=== PATIENT | female | born 1950 | race Caucasian/White ===

== ENCOUNTER 2017-12-08 14:00 | Outpatient (RCR) | payer MEDICARE, MEDICAID, SELFPAY ==
--- NOTE | 2017-10-27 17:19 | HP.PTEVAL_ITS ---
Patient's Visit Information JEREMÍAS TAO is a 67 year old F referred to Physical Therapy by Garima JONES with a diagnosis of BACK PAIN. Date of Evaluation: 10/27/17 Physical Therapist: Jaswinder Hartmann PT, - Visit Plan Frequency: 2x /Week Duration: 4 Weeks Plan: POSTURAL EX'S ,DLS,MODALITIES - Subjective Subjective: This patient presents to physical therapy with back pain for severral years.Patient intially had chest pain thoracic,not cardiac EKG showed A -FIB,cardiac enzynes -. Location of thoracic lumbar to radicular right leg. Patient symptoms worse with activity standing,walking ,bending ,lifting. Pain affects ADL'S and houework tasks. Patient c/o parathesia right leg. Symptoms better with MEDS. Patient seen DR Kaur did epidurlal injections which helped . Bowel/bladder good. No trauma. Pain affects sleeping. VOCATION: reired. SOCAIL : - Pain Bilateral Back Pain Intensity (Out of 10): 5 Pain Intensity Range: 10 Right Lower Extremity Pain Intensity (Out of 10): 7 Pain Intensity Range: 10 - Objective POSTURE: mild foward posture. GAIT: normal ruby reciprocal pattern. MMT: quads/hams 4-/5,hip 4-/5 ,ankle 4/5. NEURO; c/o parathesia/tingling right leg , reflexes L3-4,L4-5,L5-S1 1/3. PALAPTION: tender paraspinals ,L-S erector spinals. SYMMRICAL : align. LUMBAR ROM: flexion min loss,mod extension mod loss pain,side glides min ,loss pain. FLEXABILITY: hams min loss - Special Tests L/S Slump test left side: Negative L/S Slump test right side: Negative L/S Left Straight Leg Raise: Negative L/S Right Straight Leg Raise: Negative Lumbar Standing: Flexion - Mechanical Response: No effect Lumbar Standing: Flexion - Symptoms During Testing: No effect Lumbar Standing: Flexion - Symptoms After Testing: No effect Lumbar Standing: Extension - Mechanical Response: No effect Lumbar Standing: Extension - Symptoms During Testing: Increases Lumbar Standing: Extension - Symptoms After Testing: No worse - Goals Goal 1:: Independant with HEP Goal Time Frame: 4-6 Weeks Goal 2:: Independant with posture/body mechanics Goal Time Frame: 4-6 Weeks Goal 3:: Patient to decrease thoarcaic and lumbar pain by 50 % or greater to omprove function. Goal Time Frame: 4-6 Weeks Goal 4:: Patient to increase lumbar ROM WFL for function of recovery Goal Time Frame: 4-6 Weeks Goal 5:: patient to be able to perfporm ADL'S and light housework tasks with min limitations Goal Time Frame: 4-6 Weeks - Rehabilitation Potential Physical Therapy Diagnosis: This patient presents to physical therapy with limbar pain with radicular symptoms right leg with decrease strength ,pain ,ROM loss with pain which impairs ADL'S and function Rehabilitation Potential: Good - Anticipated Interventions Patient/Client Instruction: Educate patient on: Condition, Plan of Care For the Purpose of:: To decrease pain, To increase ROM, To improve muscle performance and motor function, To improve ability to perform ADL's, To increase tolerance to activity/condition/position, To improve ability of physical actions for home/community/work/leisure, To improve health of tissue, To decrease soft tissue restriction, To increase flexibility/ROM, To improve ability to perform tasks related to life management Therapeutic Exercise to Include: Strength training, Postural training, Flexibilty training, Dynamic Lumbar Stabilization For the Purpose of:: To decrease pain, To increase ROM, To improve muscle performance and motor function, To improve ability to perform ADL's, To increase tolerance to activity/condition/position, To improve ability of physical actions for home/community/work/leisure, To improve health of tissue, To decrease soft tissue restriction, To increase flexibility/ROM, To improve ability to perform tasks related to life management IF ES: Yes Cryotherapy (ice pack, ice massage): Yes Thermo therapy (hot pack): Yes Ultrasound (thermal/non thermal): Yes For the Purpose of:: To decrease pain, To increase ROM, To improve muscle performance and motor function, To increase tolerance to activity/condition/ position, To decrease level of supervision to perform tasks, To improve health of tissue, To decrease soft tissue restriction, To increase flexibility/ROM, To improve ability to perform tasks related to life management Thank you for the opportunity to evaluate your patient. For Medicare and Medicare HMO plans, please review the plan of care and approve it. It will need to be FAXED BACK to us at [phone] for Medicare purposes. Please let me know if there are questions or concerns regarding this plan of care. Physician Signature: Date:
--- NOTE | 2017-12-08 14:46 | HP.PTDCSUM_ITS ---
HP - PT D/C Summary It has been my pleasure to treat JEREMÍAS TAO under orders from DR.ABASAL Sandrine for the diagnosis of BACK PAIN for a total of 10 visit(s). Discharge Date: 12/08/17 Please see the following information for a summary of their discharge status. - Subjective Subjective: Doing good - Pain Bilateral Back Pain Intensity (Out of 10): 0 Right Lower Extremity Pain Intensity (Out of 10): 3 - Overall Improvement % Improvement: 65 - Objective Objective/Function: POSTURE: mild foward posture. GAIT: normal ruby. MMT: quads/hams/hip 4/5. LUMBAR ROM: min loss flexion /ext. FLEXABILITY: min loss hams - Goals Goal 1:: Independant with HEP Goal Progress: Goal Met Goal 2:: Independant with posture/body mechanics Goal Progress: Goal Met Goal 3:: Patient to decrease thoarcaic and lumbar pain by 50 % or greater to omprove function. Goal Progress: Goal Met Goal 4:: Patient to increase lumbar ROM WFL for function of recovery Goal Progress: Goal Met Goal 5:: patient to be able to perfporm ADL'S and light housework tasks with min limitations Goal Progress: Goal Met - Plan Plan: d/c to HEP - D/C Information Discharge Comments: HEP If there are questions or concerns regarding this patient's physical therapy, please feel free to call me at [phone]. Thank you for the referral of this patient. Sincerely, Jaswinder Hartmann, PT,
== END 2017-12-08 19:00 | disposition home or self-care (01) ==
LOC: PT 14:00
PROVIDERS: Family Provider Internal Medicine; PCP Internal Medicine; Visit Provider Anesthesiology Pain Medicine
DX: M54.9 Dorsalgia, unspecified (principal)
CPT/HCPCS: 97014; 97110; 97162; G0283

== ENCOUNTER → 2017-12-12 16:01 | Outpatient (CLI) | payer MEDICARE, MEDICAID, SELFPAY ==
--- NOTE | 2017-12-12 16:10 | RAD_ITS ---
STUDY: X-RAY - LUMBAR SPINE REASON FOR EXAM: Female, 67 years old. Right leg pain. TECHNIQUE: 3 view(s) of the lumbar spine were obtained. COMPARISON: None FINDINGS: Normal lumbar lordosis. There is a levoscoliosis of the lumbar spine. There is multilevel endplate spondylosis of the lumbar vertebrae. There is narrowing of L2-3 disc space. There is minimal anterolisthesis of L4 over L5. There is no demonstrated acute compression fracture deformity. The soft tissue structures are unremarkable. RAD/Lumbar Spine 2 or 3 Views IMPRESSION: Degenerative changes of the lumbar spine as described above. Mild levoscoliosis. Electronically Signed: Willie Morataya MD at 1:39 EST Tel , Service support ,
== END ==
PROVIDERS: Family Provider Internal Medicine; PCP Internal Medicine; Visit Provider Anesthesiology Pain Medicine
DX: M54.5 Low back pain (principal)
CPT/HCPCS: 72100

== ENCOUNTER → 2017-12-21 14:22 | Outpatient (CLI) | payer MEDICARE, MEDICAID, SELFPAY ==
[2017-12-21 15:51] LABS: Anion Gap 9 (5-15); BUN 16 mg/dL (7-18); BUN/Creat Ratio 18.8 RATIO (10-20); Calcium,Total 8.4 mg/dL (8.5-10.1); Chloride 101 mmol/L (98-107); Creatinine, Serum 0.85 mg/dL (0.55-1.02); EST Glomerular Filtration Rate 71 mL/min (>60); Est Glom Filt Rate - Afr Amer 86 mL/min (>60); Glucose 100 mg/dL (74-106); Potassium 3.9 mmol/L (3.5-5.1); Sodium Level 139 mmol/L (136-145)
== END ==
PROVIDERS: Family Provider Internal Medicine; PCP Internal Medicine; Visit Provider Internal Medicine
DX: I10 Essential (primary) hypertension (principal)
CPT/HCPCS: 36415; 80048

== ENCOUNTER → 2018-01-10 15:40 | Outpatient (CLI) | payer MEDICARE, MEDICAID, SELFPAY ==
[2018-01-10 17:50] LABS: Anion Gap 8 (5-15); BUN 16 mg/dL (7-18); BUN/Creat Ratio 19.6 RATIO (10-20); Calcium,Total 8.8 mg/dL (8.5-10.1); Chloride 98 mmol/L (98-107); Creatinine, Serum 0.82 mg/dL (0.55-1.02); EST Glomerular Filtration Rate 74 mL/min (>60); Est Glom Filt Rate - Afr Amer 90 mL/min (>60); Glucose 82 mg/dL (74-106); Sodium Level 136 mmol/L (136-145)
== END ==
PROVIDERS: Family Provider Internal Medicine; PCP Internal Medicine; Visit Provider Internal Medicine
DX: I10 Essential (primary) hypertension (principal)
CPT/HCPCS: 36415; 80048

== ENCOUNTER → 2018-01-14 07:41 | Outpatient (CLI) | payer MEDICARE, MEDICAID, SELFPAY ==
--- NOTE | 2018-01-14 07:45 | MRI_ITS ---
STUDY: MRI LUMBAR SPINE WITHOUT CONTRAST REASON FOR EXAM: Female, 67 years old. Back and right leg pain and groin pain. TECHNIQUE: Standardized fat and water weighted pulse sequences were obtained in the sagittal and axial planes. COMPARISON: None FINDINGS: T11-T12: (Sagittal only). Normal endplates. Normal disc height and morphology. Normal central canal and bilateral intervertebral neural foramina. Ovoid benign focal fatty infiltration in the left upper T12 vertebral body. T12-L1: (Sagittal only). Normal endplates. Minimal disc space height narrowing with small posterior bulging disc. Normal central canal and bilateral intervertebral neural foramina. Normal lumbar lordosis. There is no substantial scoliosis. Normal conus medullaris that terminates at the T12-L1 disc level. L1-2: Normal endplates. Normal disc height, hydration and morphology. Normal central canal and bilateral lateral recesses. Mild left degenerative facet arthropathy. Normal right facet joint. Normal bilateral intervertebral neural foramina. L2-3: Prominent anterior marginal spurs. Moderately pronounced disc space height narrowing with mild Modic type I degenerative vertebral marrow edema underneath the posterior aspect of the vertebral endplates. There is also Modic type II degenerative vertebral marrow fatty changes underneath the anterior aspect of the vertebral endplates. Posterior marginal spurs. No extruded disc fragment. Normal central canal and bilateral lateral recesses. Mild bilateral degenerative facet arthropathy. Normal bilateral intervertebral neural foramina. L3-4: Normal endplates. Mild disc space height narrowing. Posterior annular bulging disc. Mild flattening central canal stenosis secondary to developmental short pedicles and dorsal epidural lipomatosis. The AP canal diameter is 7.2 mm. Moderate asymmetric degenerative facet arthropathy. Normal bilateral intervertebral neural foramina. L4-5: Normal endplates. Mild disc space height narrowing with minimal degenerative anterolisthesis of L4 on L5. Mild flattening central canal stenosis secondary to developmentally short pedicles, dorsal epidural lipomatosis and bilateral posterior ligamentum flavum hypertrophy. Normal bilateral lateral recesses. The AP canal diameter is 7.6 mm. Moderate bilateral degenerative facet arthropathy. Normal bilateral intervertebral neural foramina. Round benign focal fatty infiltration in the left side of the lower L4 vertebral body. L5-S1: Normal endplates. Mild disc space height narrowing. Normal disc morphology. Normal central canal and bilateral lateral recesses. Mild left degenerative facet arthropathy. Normal right facet joint. Normal bilateral intervertebral neural foramina. Normal visualized sacral ala. Normal visualized paraspinous soft tissue structures. MRI/Spine Lumbar (Routine) IMPRESSION: 1. No MRI evidence of lumbar extruded disc fragment. 2. Mild flattening central canal stenosis at L4-L5 disc space level secondary to developmentally short pedicles, dorsal epidural lipomatosis, posterior ligamenta flava hypertrophy, minimal degenerative anterolisthesis of L4 on L5 and moderate bilateral degenerative facet arthropathy. 3. Mild flattening central canal stenosis at L3-L4 disc level secondary to developmental short pedicles and dorsal epidural lipomatosis. 4. Moderately pronounced L2-L3 disc space height narrowing with mixed Modic type I and type II degenerative vertebral marrow changes underneath the vertebral endplates and mild bilateral degenerative facet arthropathy. Electronically Signed: Emmanuel Belle MD at 10:53 EDT , Service support ,
== END ==
PROVIDERS: Family Provider Internal Medicine; PCP Internal Medicine; Visit Provider Anesthesiology Pain Medicine
DX: M54.9 Dorsalgia, unspecified (principal); M79.606 Pain in leg, unspecified
CPT/HCPCS: 72148

== ENCOUNTER 2018-01-15 02:18 | Emergency (ER) | payer MEDICARE, MEDICAID, SELFPAY ==
[2018-01-15] VITALS (8 sets, daily range): BP systolic 137–174; BP diastolic 79–95; PULSE 73–88; RESP 16–19; TEMP 36.9; O2SAT 96–100; BMI 25.7
--- NOTE | 2018-01-15 02:28 | EKG12_ITS ---
Test Reason : REPEAT Blood Pressure : / mmHG Vent. Rate : 075 BPM Atrial Rate : 075 BPM P-R Int : 180 ms QRS Dur : 090 ms QT Int : 412 ms P-R-T Axes : 068 040 047 degrees QTc Int : 460 ms Normal sinus rhythm Normal ECG Confirmed by KODAK DAVIS MD ([id number]), fashion editor [facility] LR ([id number]) on 01/16/2018 1:41:35 PM Referred By: CHENCHO Confirmed By:KODAK DAVIS MD
--- NOTE | 2018-01-15 02:28 | RAD_ITS ---
STUDY: X-RAY CHEST REASON FOR EXAM: Female, 67 years old. Chest pain TECHNIQUE: PA and lateral COMPARISON: 09/09/2017 FINDINGS: Lungs are expanded. There are mild fibrotic changes. There are NO infiltrates, effusions or pneumothoraces. Normal size heart. Normal mediastinum and elaine. Normal visualized pulmonary arteries. Normal visualized aortic arch and descending thoracic aorta. Normal visualized thoracic spine. Normal visualized ribs, clavicles, and shoulders. There is no demonstrated abnormality of the visualized soft tissue structures of the upper abdomen. RAD/Chest PA and Lateral IMPRESSION: There is NO acute cardiopulmonary abnormality. Electronically Signed: Denilson Velasquez MD at 3:36 EDT , Service support ,
--- NOTE | 2018-01-15 02:36 | ED.VISSUMM ---
- ER Visit Summary Date of Service: 01/15/18 Chief Complaint: [] Chest pain History of Present Illness: The patient is a 67 F [] Complaining of chest pain beginning half an hour prior to arrival. She reports she was having difficulty sleeping and started doing laundry when the pain started. Denies drug or alcohol abuse. She reports she is a smoker. Past medical history of mild COPD, hypertension, alcoholism, schizophrenia, depression, GI bleed. Past surgical history of appendectomy and left chest wall lung surgery. Physical Examination: [] Afebrile, vital signs stable. Patient is a 67-year-old female no acute distress. Cardiovascular exam is regular rate and rhythm. Lungs are clear to auscultation. Abdomen is soft and nontender. No lower extremity edema. Test Results: [] EKG #1 normal sinus rhythm, rate of 80 without ectopy or ischemic changes. Normal intervals. EKG #2: Normal sinus rhythm rate of 75, no ectopy or ischemic changes. Normal intervals. Chest x-ray 2 views: Negative. CBC, BMP normal. INR 1.0. Troponin #1: Less than 0.02. Troponin #2: Less than 0.02. Emergency Department Course and Treatment: [] Patient presented with chest pain. She underwent routine testing. Her MARNI risk score was 1 out of 7. She is unable to take aspirin secondary to a reported allergy. She underwent delta troponin testing with repeat EKG which was negative. She was pain-free after nitroglycerin. She reports she had a stress test less than a year ago which was negative. She represents a low risk candidate at this time and I feel she is a good candidate for close follow-up as an outpatient. She is amenable to discharge. She understands the instructions to return really should symptoms worsen or recur. All questions answered in layman's terms. Treatment Plan: [] Follow-up with PCP. Disposition: [] Discharge, stable. Impression: [] Chest pain This note was generated with Sp[employer] dictation software. It may contain incorrect words, spelling, and punctuation that were not noted in review of the chart prior to signing ED Disposition - Plan for ED Patient: Chief Complaint: Chest Pain Referrals: Virginia Steele MD [Primary Care Provider] -
[2018-01-15 02:50] LABS: Absolute Lymphocyte Count 1.85 X10^3/ul (0.83-4.51); Absolute Neutrophil Count 3.6 X10^3/uL (2.0-7.7); Basophil# 0.05 X10^3/uL; Basophil% 0.8 % (0-1); Eosinophil# 0.29 X10^3/uL; Eosinophils% 4.5 % (0-5); Hematocrit 40.4 % (37-47); Hemoglobin 13.9 g/dl (12.0-15.0); Lymphocyte # 1.85 X10^3/ul (4.0); Lymphocyte % 28.9 % (19-41); Mean Corp Hgb Conc 34.4 g/gl (32-36); Mean Corpuscular Hgb 33.4 pg (27.0-32.0); Mean Corpuscular Volume 97.1 fL (81-99); Mean Platelet Vol. 11.1 fl (6.2-12.0); Monocyte# 0.61 X10^3/uL; Monocyte% 9.5 % (0-10); Neutrophil % 56.3 % (47-70); POSITIVE COUNT NO; POSITIVE DIFFERENTIAL NO; POSITIVE MORPHOLOGY NO; Platelet Count 204 K/mm3 (150-450); RBC Distribution Width CV 11.9 % (11.6-14.6); RBC Distribution Width SD 41.4 fl (35.1-43.9); Red Blood Count 4.16 M/mm3 (4.2-5.4); White Blood Count 6.4 K/mm3 (4.4-11.0)
[2018-01-15 02:54] LABS: Prothrombin Time (Protime)PT. 13.3 SECONDS (11.7-14.9)
[2018-01-15 03:04] LABS: Anion Gap 7 (5-15); BUN 13 mg/dL (7-18); BUN/Creat Ratio 18.8 RATIO (10-20); Calcium,Total 8.6 mg/dL (8.5-10.1); Chloride 101 mmol/L (98-107); Creatinine, Serum 0.69 mg/dL (0.55-1.02); EST Glomerular Filtration Rate 90 mL/min (>60); Est Glom Filt Rate - Afr Amer 109 mL/min (>60); Estimated Creatinine Clearance 55.82 ml/min; Glucose 88 mg/dL (74-106); Potassium 3.6 mmol/L (3.5-5.1); Sodium Level 135 mmol/L (136-145)
--- NOTE | 2018-01-15 04:19 | EKG12_ITS ---
Test Reason : CP Blood Pressure : / mmHG Vent. Rate : 080 BPM Atrial Rate : 080 BPM P-R Int : 172 ms QRS Dur : 082 ms QT Int : 382 ms P-R-T Axes : 065 048 058 degrees QTc Int : 440 ms Normal sinus rhythm Normal ECG Confirmed by SUSAN CONDE, KODAK ([id number]), fan mail editor [facility] ([id number]) on 01/16/2018 1:41:52 PM Referred By: CHENCHO Confirmed By:KODAK DAVIS MD
--- NOTE | 2018-01-15 05:42 | ED.DEP ---
ED Disposition - Plan for ED Patient: Disposition: Home or Assisted Living Chief Complaint: Chest Pain Instructions: ED Chest Pain Atypical Unkn Cause Referrals: Virginia Steele MD [Primary Care Provider] -
--- NOTE | 2018-01-15 05:49 | ED.RN ---
IV DC'D, CATHETER INTACT, SMALL GAUZE DRESSING PLACED. DISCHARGE INSTRUCTIONS GIVEN TO AND REVIEWED WITH PATIENT, PATIENT DENIES QUESTIONS OR CONCERNS AND VOICES UNDERSTANDING OF DISCHARGE INSTRUCTIONS. PT AMBULATES OUT OF ROOM WITHOUT DIFFICULTY.
== END 2018-01-15 05:50 | disposition home or self-care (01) ==
PROVIDERS: Emergency Provider Emergency Medicine; Family Provider Internal Medicine; PCP Internal Medicine
DX: R07.9 Chest pain, unspecified (principal); I10 Essential (primary) hypertension; F10.20 Alcohol dependence, uncomplicated; F20.9 Schizophrenia, unspecified; F32.9 Major depressive disorder, single episode, unspecified; F17.200 Nicotine dependence, unspecified, uncomplicated; Z79.899 Other long term (current) drug therapy
CPT/HCPCS: 71046; 80048; 84484; 85025; 85610; 93005; 99284; A4216

== ENCOUNTER → 2018-01-27 14:43 | Outpatient (CLI) | payer MEDICARE, MEDICAID, SELFPAY | PROVIDERS: Family Provider Internal Medicine; PCP Internal Medicine; Visit Provider Internal Medicine | DX: E87.6 Hypokalemia (principal) | CPT/HCPCS: 36415; 84132 ==

== ENCOUNTER 2018-01-28 11:30 | Emergency (ER) | payer MEDICARE, MEDICAID, SELFPAY ==
[2018-01-28 11:32] VITALS: BP 172/98; PULSE 86; RESP 16; TEMP 37; O2SAT 100; BMI 25.4
--- NOTE | 2018-01-28 11:40 | EKG12_ITS ---
Test Reason : DYSRHYTHMIA Blood Pressure : / mmHG Vent. Rate : 083 BPM Atrial Rate : 083 BPM P-R Int : 180 ms QRS Dur : 082 ms QT Int : 380 ms P-R-T Axes : 073 061 062 degrees QTc Int : 446 ms Sinus rhythm with frequent Premature ventricular complexes Right atrial enlargement Borderline ECG Confirmed by SUSAN CONDE, KODAK ([id number]), newspaper photo editor [facility] ([id number]) on 01/31/2018 2:27:01 PM Referred By: Virginia Steele Confirmed By:KODAK DAVIS MD
--- NOTE | 2018-01-28 11:45 | RAD_ITS ---
STUDY: X-RAY CHEST REASON FOR EXAM: Female, 67 years old. Chest pain and jaundice TECHNIQUE: Single AP portable view of the chest. COMPARISON: January 15, 2018 FINDINGS: There is persistent right greater than left centrally located bronchiectasis. There is no demonstrated pleural abnormality. Normal size heart. Normal mediastinum and elaine. Normal visualized pulmonary arteries. Normal visualized aortic arch and descending thoracic aorta. There are diffuse degenerative changes of the visualized thoracic spine. Normal visualized ribs, clavicles, and shoulders. There is no demonstrated abnormality of the visualized soft tissue structures of the upper abdomen. RAD/Chest 1 View (Portable) IMPRESSION: Perihilar bronchiectasis and no definitive focal infiltrate. No demonstrated acute cardiopulmonary process. Electronically Signed: Karla Smith MD at 12:05 EDT Tel , Service support ,
[2018-01-28 12:02] LABS: Absolute Lymphocyte Count 1.38 X10^3/ul (0.83-4.51); Absolute Neutrophil Count 3.4 X10^3/uL (2.0-7.7); Basophil# 0.03 X10^3/uL; Basophil% 0.6 % (0-1); Eosinophil# 0.25 X10^3/uL; Eosinophils% 4.6 % (0-5); Hematocrit 38.6 % (37-47); Hemoglobin 13.1 g/dl (12.0-15.0); Lymphocyte # 1.38 X10^3/ul (4.0); Lymphocyte % 25.5 % (19-41); Mean Corp Hgb Conc 33.9 g/gl (32-36); Mean Corpuscular Hgb 32.7 pg (27.0-32.0); Mean Corpuscular Volume 96.3 fL (81-99); Mean Platelet Vol. 10.5 fl (6.2-12.0); Monocyte# 0.38 X10^3/uL; Neutrophil # 3.36 X10^3/uL (2.7-7.7); Neutrophil % 62.1 % (47-70); POSITIVE COUNT NO; POSITIVE DIFFERENTIAL NO; POSITIVE MORPHOLOGY NO; Platelet Count 213 K/mm3 (150-450); RBC Distribution Width CV 12.1 % (11.6-14.6); RBC Distribution Width SD 42.8 fl (35.1-43.9); Red Blood Count 4.01 M/mm3 (4.2-5.4); White Blood Count 5.4 K/mm3 (4.4-11.0)
--- NOTE | 2018-01-28 12:06 | ED.VISSUMM ---
- ER Visit Summary Date of Service: 01/28/18 Chief Complaint: [] Concern for yellow skin History of Present Illness: The patient is a 67 F [] hypertension low potassium by history she has been feeling fine recently had routine blood tests that were negative she is currently living in a [facility] and she indicates residents there were concerned she had yellow skin so she came to the emergency department. She has had no fever no cough no abdominal pain head neck chest or any issues of any kind. She has no history of hepatitis alcohol use or abuse or jaundice her bowel bladder habits have been normal she is eating and drinking without difficulty she is on no new medications she has no pain Physical Examination: [] Her vital signs are within normal range her skin is normal there is no signs of jaundice her eyes are normal without jaundice oral cavity is unremarkable she just had a full mouth extraction 3 weeks ago was uncomplicated the neck is supple the lungs are clear the heart tones are unremarkable abdomen soft nontender upper lower extremities unremarkable again the skin is normal the abdomen slightly soft and nontender Test Results: [] Emergency Department Course and Treatment: [] labs and fluids, the patient studies are all unremarkable see those reports I explained the test results to her of explained affect is no clinical or laboratory signs of jaundice she should follow with her family doctors and return for change in symptoms she should avoid alcohol etc. Treatment Plan: [] Disposition: [] Home stable Impression: [] Concern for jaundice This note was generated with Mulu dictation software. It may contain incorrect words, spelling, and punctuation that were not noted in review of the chart prior to signing ED Disposition - Plan for ED Patient: Chief Complaint: General Illness Referrals: Virginia Steele MD [Primary Care Provider] -
[2018-01-28 12:19] LABS: Anion Gap 5 (5-15); BUN 8 mg/dL (7-18); BUN/Creat Ratio 10.6 RATIO (10-20); Calcium,Total 8.5 mg/dL (8.5-10.1); Chloride 99 mmol/L (98-107); Creatinine, Serum 0.75 mg/dL (0.55-1.02); EST Glomerular Filtration Rate 82 mL/min (>60); Est Glom Filt Rate - Afr Amer 99 mL/min (>60); Estimated Creatinine Clearance 55.82 ml/min; Glucose 96 mg/dL (74-106); Potassium 3.2 mmol/L (3.5-5.1); Sodium Level 132 mmol/L (136-145)
[2018-01-28 12:28] LABS: BNP,B-Type NATRIURETIC PEPTIDE 20.3 pg/mL (0-100)
[2018-01-28 12:35] LABS: Bacteria 0 SEEN /hpf (None Seen); Color, Urine Straw (Yellow); Glucose, Dipstick Normal (Normal); Ketone-Dipstick Negative (Negative); Leukocyte Esterase-Dipstick Negative /ul (Negative); Mucous, Urine 0 SEEN /hpf (<or=2+); Nitrite-Dipstick Negative (Negative); Occult Blood-Urine Negative /ul (Negative); Protein-Dipstick Negative (Negative); Red Blood Cells-Urine 0 SEEN /hpf (0-5); Specific Gravity, Urine 1.005 (1.002-1.030); Urine Bilirubin Dipstick Negative (Negative); Urine Clarity Clear (Clear); Urine Urobilinogen Normal (Normal); White Blood Cells 0 SEEN /hpf (0-5)
[2018-01-28 12:40] LABS: Squamous Epithelial Cells - UA 0-5 SEEN /hpf (5-10)
[2018-01-28 13:06] LABS: AST(SGOT) 13 U/L (15-37); Alanine Aminotransfer ALT/SGPT 14 U/L (13-56); Albumin, Serum 3.9 g/dL (3.2-5.0); Alkaline Phosphatase 78 U/L (45-117); Bilirubin, Direct 0.13 mg/dL (0.00-0.30); Globulin 3.4 g/dL (2.2-4.2); Protein, Total 7.3 g/dL (6.4-8.2)
--- NOTE | 2018-01-28 13:22 | ED.DEP ---
ED Disposition - Plan for ED Patient: Chief Complaint: General Illness Referrals: Virginia Steele MD [Primary Care Provider] - Additional Instructions: Avoid alcohol follow-up with your doctor in the next few days there is no signs of jaundice on your blood tests
[2018-01-28 13:29] VITALS: BP 157/92; PULSE 84; RESP 17; O2SAT 98
--- NOTE | 2018-01-28 13:29 | ED.RN ---
REVIEWED D/C INSTRUCTIONS, FOLLOW UP CARE, AND S/S THAT WOULD WARRANT A RETURN TO THE ED WITH PT. PT VERBALIZED AN UNDERSTANDING AND DENIES FURTHER QUESTIONS FOR THIS RN. PT SKIN P/W/D, RESP EVEN AND UNLABORED, PT A&O X 3, NO DISTRESS NOTED. PT AMBULATED OUT OF ED, GAIT STEADY.
== END 2018-01-28 13:30 | disposition home or self-care (01) ==
LOC: ED 12:31
PROVIDERS: Emergency Provider Emergency Medicine; Family Provider Internal Medicine; PCP Internal Medicine
DX: Z00.00 Encounter for general adult medical examination without abnormal findings (principal); Z13.89 Encounter for screening for other disorder; I10 Essential (primary) hypertension; Z79.899 Other long term (current) drug therapy
CPT/HCPCS: 71045; 80048; 80076; 81001; 83880; 84484; 85025; 93005; 99284; A4216

== ENCOUNTER → 2018-05-17 12:08 | Outpatient (CLI) | payer MEDICARE, MEDICAID, SELFPAY ==
--- NOTE | 2018-05-17 12:12 | EKG12_ITS ---
Test Reason : PRE-OP Blood Pressure : / mmHG Vent. Rate : 084 BPM Atrial Rate : 084 BPM P-R Int : 176 ms QRS Dur : 082 ms QT Int : 380 ms P-R-T Axes : 070 039 050 degrees QTc Int : 449 ms Sinus rhythm with occasional Premature ventricular complexes Biatrial enlargement Abnormal ECG Confirmed by KATIE CONDE, CARROL ([id number]), commissioning editor [facility] ([id number]) on 05/18/2018 9:35:07 AM Referred By: Sahil Rhodes Confirmed By:CARROL WILSON MD
== END ==
PROVIDERS: Family Provider Internal Medicine; PCP Internal Medicine; Visit Provider Nurse Practitioner Family
DX: I49.9 Cardiac arrhythmia, unspecified (principal)
CPT/HCPCS: 93005

== ENCOUNTER → 2018-06-08 11:07 | Outpatient (CLI) | payer MEDICARE, MEDICAID, SELFPAY ==
[2018-06-08 11:58] LABS: Anion Gap 10 (5-15); BUN 9 mg/dL (7-18); Calcium,Total 9.4 mg/dL (8.5-10.1); Chloride 102 mmol/L (98-107); Cholesterol 128 mg/dL (200); EST Glomerular Filtration Rate 59 mL/min (>60); Est Glom Filt Rate - Afr Amer 71 mL/min (>60); Glucose 97 mg/dL (74-106); High Density Lipoprotein 64 mg/dL; Potassium 3.7 mmol/L (3.5-5.1); Sodium Level 135 mmol/L (136-145); Triglycerides 59 mg/dL; Very Low Density Lipoprotein 12 mg/dL (5-40)
== END ==
PROVIDERS: Family Provider Internal Medicine; PCP Internal Medicine; Visit Provider Internal Medicine
DX: I10 Essential (primary) hypertension (principal)
CPT/HCPCS: 36415; 80048; 80061

== ENCOUNTER 2018-07-12 06:53 | Day surgery (SDC) | payer MEDICARE, MEDICAID, SELFPAY ==
[2018-07-12 07:11] VITALS: BP 146/76; PULSE 84; RESP 14; TEMP 36.6; O2SAT 100; BMI 22.6
--- NOTE | 2018-07-12 07:50 | H&P.OPEN ---
Past Medical/Surgical History - Planned Operation Planned Operative Procedure/s: colonoscopy Date of Operative Procedure: 07/12/18 Permit Signed: No S.O.S: No Is This Patient Having a Total Joint: No - Previous Hospitalizations/Surgeries HX Hospitalizations: Yes HX of Surgeries: LEFT LUNG SURGERY FOR PNEUMOTHORAX 1967. APPENDECTOMY 1985. LT LEG SURGERY FOR COMPARTMENT SYNDR about 2011. HOSPITALIZED FOR GI BLEED IN THE PAST. Colonoscopy 2017 Any Problems With Anesthesia: Yes - MANY YRS AGO WOKE UP COMBATIVE You/Your Family Experience Fever (Hyperthermia) With Anes: No Cholinesterase deficiency: No - Cardiovascular Hx Chest Pain within Last 2 months: Yes Hx of Irregular Heartbeat and/or Afib: Yes Hx Heart Attack: Yes - about 2006 Hx Congestive Heart Failure: No Hx Rheumatic Fever: No Hx Hypertension: Yes - CONTROLLED WITH MED Hx Internal Defibrillator: No Hx Pacemaker: No Hx Cardiac Catheterization: Yes - [facility] about 2006 What facility was last heart cath performed: [facility] Date of last Heart Cath: about 2006 Hx Cardiac Surgery/Stents/Etc.: No - . Hx Stress Test: Yes - 2014 AND ECHO HX Edema: Yes Hx Pain in Legs when Walking/Leg Cramps: No - Respiratory Chronic Cough: Yes HX of Shortness of Breath: No Hoarseness: No Hx Chronic Obstructive Pulmonary Disease (COPD): No - pt denies Hx Asthma: No Hx Emphysema: No - pt denies Hx Sleep Apnea: No CPAP: No BIPAP: No Hx Respiratory Tract Infection/Cold (presently): No Do You Snore Loudly (louder than talking or can be heard): Yes Do You Often Feel Tired/ Fatigued/ Sleepy Dring Daytime?: No Has Anyone Observed You Stop Breathing During Sleep?: No Result (for STOP score): Positive Hx Smoking: Yes - <1ppd CIGARETTES DAILY Smoking Status: Current every day smoker - Gastrointestinal Hx Gastroesophageal Reflux: No Hx Gastrointestinal Disorders: No Hx Gastrointestinal Bleed: Yes Hx Ulcer: Yes Hx Hiatal Hernia: No Difficulty Chewing/Swallowing: No Recent Onset of Swallowing Problems: No Special diet followed at home: Yes - low salt Hx Unplanned Weight Loss of 20#: No HX Unplanned Weight Gain of 20#: No - Neurological Hx Seizures: No HX Syncope/Blackout Spells/Unconsciousness: No Hx CVA/Stroke: No Hx Transient Ischemic Attacks (TIA): No Hx Multiple Sclerosis: No Hx Parkinson's Disease: No Hx Head/Neck Injury: No Hx Headaches: Yes - MIGRAINES YOUNG ADULT Hx Back Injury/Pain: Yes Recent Onset of Speech Difficulty: No Restless Legs: No Does patient have nerve stimulator: No Patient instructed to have device shut off: No Rep notified?: No - Blood Disorder Hx Leukemia: No Bleeding Tendencies: No Hx Deep Vein Thrombosis: No Hx High Cholesterol: No Blood Transmitted Disease: No Hx Hepatitis: No Hx Cirrhosis: No Hx Anemia: Yes Hx Blood Disorders: No - Reproduction Is Patient Lactating: No Hx Hysterectomy: No Hx Tubal Ligation: No Are You Post Menopause: Yes - Genitourinary Hx Renal Disease: No Hx Dialysis: No - Musculoskeletal Hx Arthritis: No Hx Rheumatoid Arthritis: No Hx Gout: No Recent Onset of an Orthopedic Problem: No - Endocrine Hx Diabetes: No Thyroid Disease: No Hx Steroid Therapy: Yes - back shot not sure what was in it - Psycho/Social Hx Substance Use: No Hx Alcohol Use: No Hx Anxiety: Yes - yrs ago, resolved now Hx Depression: Yes - yrs ago, resolved now Mental Illness: No Hx Dementia: No - Miscellaneous Hx Cancer: No Recent Exposure to Contagious Disease: No Active MRSA: No Hx of C-Diff: No Any Loose Teeth: No Allergies buspirone HCl [From BuSpar] Allergy (Verified 07/12/18 07:11) Unknown mold Allergy (Verified 07/12/18 07:11) cough aspirin Adverse Reaction (Verified 07/12/18 07:11) GI BLEED history GI bleed bupropion [From Wellbutrin] Adverse Reaction (Verified 07/12/18 07:11) suicidal tendencies ibuprofen Adverse Reaction (Verified 07/12/18 07:11) GI BLEED Hx of GI bleed iv dye containing iodine Allergy (Uncoded 07/12/18 07:11) Unknown Paternal Family History: Family History (Last Reviewed 05/17/18 @ 10:47 by Shawna Christensen) Unknown Past medical history not known due to adoption No pertinent history - Discharge Is Pt Admitted From a Fdc, or a Long Term: No Who Depends On You At Home: lives alone Who Could Help: [facility] transportation After D/C, Where Do you Plan to Go: Return Home - From the PAT History Number of Risk Factors: 5 - Physical Exam General: Alert, Oriented x3, Cooperative, No apparent distress HEENT: Atraumatic Lungs: Normal air movement Cardiovascular: Regular rate Abdomen: Soft, Non Tender, Non-Distended, - - Open appendectomy incision well-healed Extremities: No clubbing, No cyanosis, No edema Skin: No rashes Neurological: Cranial nerves II-XII grossly intact Vital Signs Temp Pulse Resp BP Pulse Ox 98 F 84 14 146/76 H 100 07/12/18 07:11 07/12/18 07:11 07/12/18 07:11 07/12/18 07:11 07/12/18 07:11 Oxygen Delivery Method Room Air Weight: 149 lb 4.047 oz Body Mass Index (BMI) 22.6 Assessment/Plan All Active Problems (Last Reviewed 05/17/18 @ 10:47 by Shawna Christensen) history of left leg surgery (Resolved) History of appendectomy (Resolved) fusion of left lung to chest wall (Resolved) Chronic back pain (Resolved) Right anterior knee pain (Resolved) 67-year-old female here for screening colonoscopy, denies family history of colon cancer or previous colonoscopy 1. Screening colonoscopy, did discuss risks benefits of the procedure with the patient. She is agreeable to proceed Ese Ponce M.D. Pager: [phone] [facility] [address] [place] [address], [address] [place] [address] Office: [phone] Surgery Risks - Colonoscopy I discussed with the patient the risks of the procedure: Yes Risks Include but are not Limited To: Risks include but are not limited to: Bleeding, perforation requiring further surgery, inability to complete colonoscopy requiring barium enema.
--- NOTE | 2018-07-12 08:00 | COLBX_PTH ---
PATIENT: JEREMÍAS TAO LOC: EN U#:[id number] AGE/SX: 67/F ROOM: RE07/12/[address]: Dr. Ese Ponce MD : 1950 BED: DIS: 07/12/2018 SPEC #: [id number] RECD: 07/12/18 12:23 STATUS: BETTY ABDIEL #: [id number] [place]: 07/12/18 08:[address]: Ese Ponce DEPT: SURGICAL PATHOLOGY RECD BY: Saman Newell ENTERED: 07/12/18 14:16 SP TYPE: COLON BX SELINA DR: Dr. Virginia Steele MD Tissues: A - Transverse colon B - Descending colon Procedures: Surgery Specimen Level IV HEADER OPERATION: Colonoscopy (MAC) PRE-OP DIAGNOSIS: Screening TISSUE SUBMITTED: A. Polyp of proximal transverse colon, B. Biopsy of descending colon polyp MICROSCOPIC DIAGNOSIS A. Polyp of proximal transverse colon, biopsy: Fragments of tubular adenoma. B. Descending colon polyp, biopsy: Fragments of tubular adenoma. GHADA:wayne 07/13/18 MICROSCOPIC DESCRIPTION Slides are reviewed. GROSS DESCRIPTION A - Received in fixative is one container labeled with the patient's name and designated polyp of proximal transverse colon. The specimen consists of multiple irregular fragments of light murray soft tissue that in aggregate measure 1.5 x 0.7 x 0.1 cm. The specimen is totally submitted in one cassette. B - Received in fixative is one container labeled with the patient's name and designated biopsy of descending colon polyp. The specimen consists of multiple irregular fragments of light murray soft tissue that in aggregate measure 1.5 x 0.4 x 0.1 cm. The specimen is totally submitted in one cassette. / GHADA:wayne 07/12/18 TC:1 [facility]: [id number] x2
[2018-07-12 08:39] VITALS: BP 109/71; BP 146/76; PULSE 76; RESP 16; TEMP 37.3; O2SAT 100
[2018-07-12 08:40] VITALS: BP 114/72; BP 146/76; PULSE 79; RESP 16; O2SAT 100
--- NOTE | 2018-07-12 08:44 | OP.ENDO_ITS ---
Patient Name: Judith Martinez Procedure Date: 07/12/2018 7:37 AM Date of : 1950 Age: 67 Procedure: Colonoscopy Indications: Screening for colorectal malignant neoplasm Providers: Ese Ponce MD Medicines: Monitored Anesthesia Care Patient Profile: Last Colonoscopy: none. The patient's first colonoscopy is today. Complications: No immediate complications. Procedure: Pre-Anesthesia Assessment: - Prior to the procedure, a History and Physical was performed, and patient medications and allergies were reviewed. The patient's tolerance of previous anesthesia was also reviewed. The risks and benefits of the procedure and the sedation options and risks were discussed with the patient. All questions were answered, and informed consent was obtained. Prior Anticoagulants: The patient has taken no previous anticoagulant or antiplatelet agents. ASA Grade Assessment: II - A patient with mild systemic disease. After reviewing the risks and benefits, the patient was deemed in satisfactory condition to undergo the procedure. After I obtained informed consent, the scope was passed under direct vision. Throughout the procedure, the patient's blood pressure, pulse, and oxygen saturations were monitored continuously. The colonoscope was introduced through the anus and advanced to the cecum, identified by the ileocecal valve. The colonoscopy was performed without difficulty. The patient tolerated the procedure well. The quality of the bowel preparation was good. Scope In: 8:03:20 AM Scope Withdrawal Time 0 hours 19 minutes 4 seconds Scope Out: 8:32:30 AM Total Procedure Duration Time 0 hours 29 minutes 10 seconds Findings: A 3 to 5 mm polyp was found in the proximal transverse colon. The polyp was sessile. The polyp was removed with a hot snare. Resection and retrieval were complete. Biopsies were taken with a hot snare for histology. A 2 to 5 mm polyp was found in the descending colon. The polyp was sessile. Biopsies were taken with a cold forceps for histology. Impression: - One 3 to 5 mm polyp in the proximal transverse colon, removed with a hot snare. Resected and retrieved. Biopsied. - One 2 to 5 mm polyp in the descending colon. Biopsied. Recommendation: - Discharge patient to home. - Continue present medications. - Repeat colonoscopy in 3 - 5 years for surveillance of multiple polyps. Procedure Code(s): --- Professional --- 31766, Colonoscopy, flexible; with removal of tumor(s), polyp(s), or other lesion(s) by snare technique 19724, 59, Colonoscopy, flexible; with biopsy, single or multiple Diagnosis Code(s): --- Professional --- Z12.11, Encounter for screening for malignant neoplasm of colon D12.3, Benign neoplasm of transverse colon (hepatic flexure or splenic flexure) D12.4, Benign neoplasm of descending colon CPT copyright 2017 [employer]. All rights reserved. The codes documented in this report are preliminary and upon hop grower review may be revised to meet current compliance requirements. MD Ese Suárez MD 07/12/2018 8:43:40 AM This report has been signed electronically. Number of Addenda: 0 Note Initiated On: 07/12/2018 7:37 AM
[2018-07-12 08:45] VITALS: BP 116/73; BP 146/76; PULSE 75; RESP 16; O2SAT 100
[2018-07-12 08:50] VITALS: BP 116/73; BP 146/76; PULSE 75; RESP 16; TEMP 37.2; O2SAT 100
[2018-07-12 09:11] VITALS: BP 146/76
== END 2018-07-12 09:24 | disposition home or self-care (01) ==
LOC: EN 06:55 → AC 06:56
PROVIDERS: Family Provider Internal Medicine; PCP Internal Medicine; Visit Provider Surgery
PROC: 0DJD8ZZ Inspection of Lower Intestinal Tract, Via Natural or Artificial Opening Endoscopic (ICD-10-PCS; CPT 45378; principal; 2018-07-12 07:55)
DX: Z12.11 Encounter for screening for malignant neoplasm of colon (principal); D12.4 Benign neoplasm of descending colon; D12.3 Benign neoplasm of transverse colon; I10 Essential (primary) hypertension; I25.2 Old myocardial infarction; F17.200 Nicotine dependence, unspecified, uncomplicated; Z79.899 Other long term (current) drug therapy
CPT/HCPCS: 45380; 45384; 88305; J7120

== ENCOUNTER → 2018-10-16 12:44 | Outpatient (CLI) | payer MEDICARE, MEDICAID, SELFPAY ==
[2018-10-13 14:54] VITALS: BMI 23.8
--- NOTE | 2018-10-16 12:47 | VDLE_ITS ---
Reason For Study: LEG SWELLING RIGHT LEFT GSV is normal. CFV is compressible, spontaneous, phasic, CFV is compressible, spontaneous, phasic, competent, and demonstrates normal competent and demonstrates normal augmentation. augmentation. FV is compressible, spontaneous, phasic, competent and demonstrates normal augmentation. POP V is compressible, spontaneous, phasic, competent and demonstrates normal augmentation. T/P Trunk is compressible. PTV is compressible. RT PerV is compressible. Procedure Exam performed in department. A preliminary report was called and/or faxed to Charlotte Rhodes. Interpretation Summary Deep veins of the right lower extremity are patent and compressible segmentally. There is no evidence of right lower extremity deep vein thrombosis. Valvular competence appears intact within the proximal deep venous system on the right . The right greater saphenous vein appears patent and compressible segmentally. Ordering Physician: Sahil Rhodes Referring Physician: Sahil Rhodes Performed By: Edith Farfan RVT
== END ==
PROVIDERS: Family Provider Internal Medicine; PCP Internal Medicine; Referring Provider Nurse Practitioner Family; Visit Provider Nurse Practitioner Family
DX: M79.89 Other specified soft tissue disorders (principal)
CPT/HCPCS: 93971

== ENCOUNTER → 2019-01-01 06:44 | Outpatient (CLI) | payer MEDICARE, MEDICAID, SELFPAY ==
[2018-12-08 08:37] VITALS: BMI 27.3
[2018-12-20 14:43] VITALS: BMI 27.3
[2019-01-01 09:00] LABS: Anion Gap 6 (5-15); BUN 18 mg/dL (7-18); BUN/Creat Ratio 18.4 RATIO (10-20); Calcium,Total 9.2 mg/dL (8.5-10.1); Chloride 104 mmol/L (98-107); Creatinine, Serum 0.98 mg/dL (0.55-1.02); EST Glomerular Filtration Rate 60 mL/min (>60); Est Glom Filt Rate - Afr Amer 73 mL/min (>60); Glucose 89 mg/dL (74-106); Sodium Level 139 mmol/L (136-145)
--- NOTE | 2019-01-01 10:13 | STRESSREP ---
Stress Test Report Exercise myocardial perfusion stress test. 68-year-old lady with a history of chest pain. Medications losartan omeprazole amlodipine. Stress protocol: Resting EKG demonstrates normal sinus rhythm with a rate of 79 bpm resting blood pressures 140/70 mmHg. The patient exercised according to regular Rory protocol for a total duration of 4 minutes and 45 seconds. The maximum heart rate attained was 146 bpm which was 95% of maximum corrected heart rate maximum workload was 6.7 metabolic equivalents. The patient maintained sinus rhythm throughout the recording. At rest there were no ST or T wave changes no suggest ischemia at peak exercise upsloping ST changes were noted. Occasional premature ventricular complex only was present. No clinical angina was noted the test was terminated due to shortness of breath. The resting blood pressure was noted to be 140/70 with a peak blood pressure 202/80 mmHg. Myocardial perfusion protocol. 11.8 mCi of technetium 99m sestamibi was injected at rest. Patient then exercised according to regular Rory protocol. At peak exercise 33.1 mCi of technetium 99m sestamibi was injected stress and rest images were reconstructed and compared in the short axis vertical and horizontal long axes. Gated images were also obtained Perfusion SPECT analysis: Review of the stress images demonstrate normal uptake of tracer noted in all areas of the myocardium. The resting images demonstrate normal uptake of tracer noted in the rest of the myocardium. No area service. Note suggest ischemia no previous infarct is noted. Gated SPECT analysis: The gated ejection fraction is noted to be 75%. Conclusion: Normal myocardial perfusion stress test at a moderate workload. No clinical angina Preserved ejection fraction.
== END ==
PROVIDERS: Family Provider Internal Medicine; PCP Internal Medicine; Referring Provider Internal Medicine Cardiovascular Disease; Visit Provider Internal Medicine Cardiovascular Disease
DX: I10 Essential (primary) hypertension (principal); R07.89 Other chest pain; F17.210 Nicotine dependence, cigarettes, uncomplicated
CPT/HCPCS: 36415; 78452; 80048; 93017; 99407; A9500; A4216

== ENCOUNTER 2019-01-09 10:00 | Outpatient (RCR) | payer MEDICARE, MEDICAID, SELFPAY ==
[2018-12-08 08:37] VITALS: BMI 27.3
[2018-12-20 14:43] VITALS: BMI 27.3
== END 2019-01-14 23:59 ==
LOC: PSN 10:00
PROVIDERS: Family Provider Internal Medicine; PCP Internal Medicine; Referring Provider Internal Medicine; Visit Provider Internal Medicine
DX: F17.210 Nicotine dependence, cigarettes, uncomplicated (principal)
CPT/HCPCS: 99407

== ENCOUNTER → 2019-01-31 | Outpatient (CLI) | payer MEDICARE, MEDICAID, SELFPAY ==
[2018-12-20 14:43] VITALS: BMI 27.3
--- NOTE | 2019-01-31 11:42 | RAD_ITS ---
STUDY: X-RAY - CERVICAL SPINE REASON FOR EXAM: Female, 68 years old. Chronic neck pain. TECHNIQUE: 3 view(s) of the cervical spine were obtained. COMPARISON: None FINDINGS: Normal anterior atlantoaxial articulation. Normal odontoid process. There is straightening of the normal cervical lordosis. There is multi-level endplate spondylosis. Facet joint osteoarthritis. The soft tissue structures are unremarkable. RAD/Cerv Spine 2 or 3 Views IMPRESSION: Straightening of the normal cervical lordosis. Multilevel spondylosis and disc space narrowing and facet joint osteoarthritis. Electronically Signed: Raheel Escamilla, at 14:39 EDT , Service support ,
== END | disposition home or self-care (01) ==
LOC: RAD 11:40
PROVIDERS: Family Provider Internal Medicine; PCP Internal Medicine; Referring Provider Anesthesiology Pain Medicine; Visit Provider Anesthesiology Pain Medicine
DX: M54.2 Cervicalgia (principal)
CPT/HCPCS: 72040

== ENCOUNTER → 2019-02-20 | Outpatient (CLI) | payer MEDICARE, MEDICAID, SELFPAY ==
[2018-12-20 14:43] VITALS: BMI 27.3
--- NOTE | 2019-02-20 12:25 | MRI_ITS ---
STUDY: MRI CERVICAL SPINE WITHOUT CONTRAST REASON FOR EXAM: Female, 68 years old. Neck pain, and right arm radiculopathy TECHNIQUE: Standardized fat and water weighted pulse sequences were obtained in the sagittal and axial planes. COMPARISON: None FINDINGS: Normal foramen magnum and brainstem-cervical cord junction. Normal craniovertebral junction. Normal anterior atlantoaxial articulation. Normal odontoid process. There is loss of normal cervical lordosis Normal vertebral bodies and posterior osseous elements. C2-3: There is no disc protrusion. There is mild facet spondylosis. There are moderate left facet degenerative changes. There is no central canal or right foraminal stenosis. There is mild left foraminal stenosis C3-4: There is mild posterior bulging annulus. There is significant uncinate hypertrophy. There are moderate right facet degenerative changes. There is mild right foraminal stenosis. There are severe left facet degenerative changes. There is moderate left foraminal stenosis. There is no central canal stenosis C4-5: There is no disc protrusion. There is uncinate hypertrophy. There are moderate facet degenerative changes. There is no central canal stenosis. There is mild bilateral foraminal stenosis C5-6: There is disc space narrowing. There is no disc protrusion. There is significant uncinate hypertrophy. There are moderate facet degenerative changes. There is no central canal stenosis. There is mild bilateral foraminal stenosis. There is left foraminal nerve root sleeve cyst. C6-7: There is disc space narrowing. There is mild broad-based posterior disc osteophyte complex. There is 3 mm anterolisthesis C7 on C6. There is moderate central canal stenosis. There is cord compression. There is significant uncinate hypertrophy. There is moderate bilateral foraminal stenosis C7-T1: Mild disc osteophyte complex. There is uncinate hypertrophy. No central canal foraminal stenosis Mild posterior bulging of this at T1-T2. Normal cervical cord. Normal visualized soft tissue structures. MRI/Spine Cervical (Routine) IMPRESSION: Loss of normal cervical lordosis likely due to muscular spasm Multilevel spondylosis with multilevel bulging annuli Multifactorial multilevel central canal and foraminal stenoses most significant at C6-C7 Electronically Signed: Rey Milton, at 0:00 EDT Tel , Service support ,
== END | disposition home or self-care (01) ==
PROVIDERS: Family Provider Internal Medicine; PCP Internal Medicine; Referring Provider Anesthesiology Pain Medicine; Visit Provider Anesthesiology Pain Medicine
DX: M54.2 Cervicalgia (principal); M79.603 Pain in arm, unspecified
CPT/HCPCS: 72141

== ENCOUNTER 2019-03-27 07:51 | Outpatient (RCR) | payer MEDICARE, MEDICAID, SELFPAY ==
[2018-12-20 14:43] VITALS: BMI 27.3
--- NOTE | 2019-03-27 09:11 | HP.PTEVAL ---
Patient's Visit Information JEREMÍAS TAO is a 68 year old F referred to Physical Therapy by Leila Gardner MD with a diagnosis of Lumbar Pain. Date of Evaluation: 03/27/19 Physical Therapist: Aida Liao DPT - Visit Plan Frequency: 2x /Week Duration: 4 Weeks Plan: Aquatic Therapy- Focus on core s/s and functional mobility. - Subjective Findings: Patient reports that she is having a lot of trouble with her right leg- by MD thinks its her spine. It has been bad for a few years and its getting worse. Insidious onset. Pain is located in the right hip down to the ankle. The pain travels depending on activity. Her low back also bothers her. She was suppose to do exercises at home but she did a DKTC exercises and after doing that her right leg hurt so bad she was unable to continue exercises and she could not sleep and hurt for about 3 days- that was in December. Describes the pain as sharp with no N/T. Worst: 07/26 Past 48 hours: 8-06/26. Agg: walking, standing, pretty much anything. Eases: had 8 weeks of PT and felt better. Best: 01/24. Has had an x-ray of the lumbar spine and an MRI of her cervical spine. No change or loss of bowel or bladder. Sleep: disturbed- toss and turns all night- sleeps on her side. PMHx: HTN, Surgery on the left LE, lung surgery. Meds: see list. Sees Dr. Jacques tomorrow and has had 2 injections- they help but they don't last- last one was March 08. Patient reports that she is retired. - Objective Posture: FH, RS- can correct but does not maintain. Gait: slightly antalgic- decreased stance on the right LE with poor heel/toe pattern. SLS: 3 sec then requires UE A. HR/TR: able with UE A- equal bilaterally. ROM: Lumbar: flexion- moderate restriction, extn: to neutral, SB and Rotation Bilatearlly: minimal restriction, Hip/Knee/Ankle. Sensation: intact to gross touch. Reflex: WNL. Strength: Core: poor, Hip: 4-/5 throughout, Knee: 4+/5, Ankle: 5/5. Flex: HS: moderate, Gastroc: moderate. Palpation: tender along paraspinals. Observation: increased pain with transfers sit to supine and supine rolling to the left. Special Test: Dural Signs: positive on the right, Slump: positive on the right - Goals Goal 1:: Patient will be I with HEP and progression Goal Time Frame: 4-6 Weeks Goal 2:: Patient will maintain proper posture t/o tx session to demo increased core s/s Goal Time Frame: 4-6 Weeks Goal 3:: Patient will ambulate >300 feet with a normalized gait pattern Goal Time Frame: 4-6 Weeks Goal 4:: Patient will report 2/10 pain for 1 week Goal Time Frame: 4-6 Weeks - Rehabilitation Potential Physical Therapy Diagnosis: Patient presents with hypomobility- she has decreased ROM, strength, flex and muscular endurance leading to poor posture and increased pain with ADL's. Rehabilitation Potential: Fair - Anticipated Interventions Therapeutic Exercise to Include: Strength training, Endurance training, Balance training, Body mechanics, Postural training, Flexibilty training, Gait and locomotor training, In an aquatic setting, Dynamic Lumbar Stabilization, Scapular Strength/Stabilization For the Purpose of:: To improve muscle performance and motor function Thank you for the opportunity to evaluate your patient. For Medicare and Medicare HMO plans, please review the plan of care and approve it. It will need to be FAXED BACK to us at [phone] for Medicare purposes. For Medicare only, by signing this I certify the plan of care. Please let me know if there are questions or concerns regarding this plan of care. Physician Signature: Date:
--- NOTE | 2019-06-19 12:45 | HP.PT.NRP ---
HP - Discharge Summary (1) - Patient Information JEREMÍAS TAO was seen in my office for initial evaluation on 03/27/19. The following Plan of Care was established for this patient: Initial Frequency: 2x /Week Initial Duration: 4 Weeks - Anticipated Interventions Therapeutic Exercise to Include: Strength training, Endurance training, Balance training, Body mechanics, Postural training, Flexibilty training, Gait and locomotor training, In an aquatic setting, Dynamic Lumbar Stabilization, Scapular Strength/Stabilization For the Purpose of:: To improve muscle performance and motor function This patient was last seen in our office . Pertinent comments regarding their Physical therapy will appear below: Patient has not attended PT over 2 months- appropriate for d/c At this point I will be discontinuing this patient from physical therapy. I would be happy to see this patient again in the future if found appropriate by the physician. Thank you! EMANUEL MorrowT
== END 2019-03-27 19:00 | disposition home or self-care (01) ==
LOC: PT 07:51
PROVIDERS: Family Provider Internal Medicine; PCP Internal Medicine; Visit Provider Internal Medicine
DX: M54.5 Low back pain (principal); G89.29 Other chronic pain
CPT/HCPCS: 97161

== ENCOUNTER 2019-04-16 10:54 | Day surgery (SDC) | payer MEDICARE, MEDICAID, SELFPAY ==
[2018-12-20 14:43] VITALS: BMI 27.3
--- NOTE | 2019-04-15 18:27 | PCM.HP.BLA ---
History and Physical Date of Admission: 04/16/19 Judith Martinez is a 68 year old female who is a consultation requested by Dr. Gardner for an opinion regarding GERD. My final recommendations will be communicated back to the requesting physician by way of shared Medical record. The patient has not been seen previously. The patient denies a family history of colon cancer. ? The patient sees Dr. Jacques regarding back and right leg pain. She tells me that he will be sending her to a spinal surgeon. Taking tramadol routinely. ?The patient was seen by Dr. Gardner on 02/13/19, leading to this consultation. That note has been reviewed and part as follows: Patient has chest pain?on and off, she??had a stress test in january 01 of this year, and the test was negative. The pain today was 9/10, sometimes it hurts her a lot, she has trouble breathing, it is the centre of chest and goes to back. She does not have left arm pain or jaw pain or sweating that is ?Unusual. She is very afraid and scared. She had a heart cath in 2006 but nothing before or after that. She had gone mutliple times to the ER at [facility] and was asked not to come?as it is not related to the heart Has reflux for which she takes ppi, does not note that the relation is with food but sheis a poor historian Pantoprazole was prescribed. ?? On chart review I see that the patient had an EGD by Dr. Crescencio Galvan 05/12/09. ([facility]) The procedure reports have been reviewed and findings as follows: EGD IMPRESSION 1. ?Multiple shallow clean based gastric antral ulcers. 2. ?Veronica esophagitis. ? FINAL DIAGNOSIS A. ?GASTRIC BIOPSY: CHRONIC ACTIVE GASTRITIS. GIEMSA STAIN FOR H. PYLORI IS NEGATIVE. B. ?MID-DISTAL ESOPHAGUS, BIOPSY: ESOPHAGEAL EOSINOPHILIA. ?SEE COMMENT. COMMENT: ?This finding may be seen in a number of entities including reflux esophagitis, eosinophilic gastroenteritis, drug reactions, and pill-induced esophagitis. ?Clinical correlation is recommended. ? The patient underwent colonoscopy by Dr. Galvan on 05/13/09. The findings of that procedure are as follows: IMPRESSION 1. ?A 5 mm hepatic flexure sessile polyp, status post cold snare polypectomy. 2. ?Internal hemorrhoids. 3. ?No evidence of gastrointestinal bleeding. ? FINAL DIAGNOSIS BIOPSY OF HEPATIC FLEXURE: TUBULAR ADENOMA OF COLON. NO MALIGNANCY IDENTIFIED. ? The patient saw Dr. Herman on 01/28/15 regarding surveillance colonoscopy. The procedure was ordered, but I can't find the report. The patient states that it was done at [facility]. ?? ? Subjective The patient presents today telling me Dr. Gardner is worried that my stomach is causing the chest pain that I went to ED with. She admits that pantoprazole has been more effective than the omeprazole was. She denies any dysphagia or nausea. ? The patient recalls having had a bleeding ulcer back in 2008. She denies any stomach pain at this time. No black stool. ? The patient denies change in bowel habits, rectal bleeding or abdominal pain. Having a bowel movement at least 3-4 times a week. ? ? ? Review of Systems Constitutional: Negative for appetite change and unexpected weight change. HENT: Negative for dental problem (full dentures), mouth sores and trouble swallowing. Respiratory: Positive for cough (uses an inhaler with good effect). Reports mild COPD Cardiovascular: Negative for chest pain, palpitations and leg swelling. Cardiac work up was negative. Gastrointestinal: Positive for abdominal pain (Epigastric region-until starting the pantoprazole). Negative for anal bleeding, blood in stool, constipation, diarrhea, nausea and vomiting. Genitourinary: Still menstruating. Lasts 2-3 days. Musculoskeletal: Positive for arthralgias and back pain. Seeing pain management. Neurological: Positive for headaches. Negative for tremors and seizures. Hematological: Negative for adenopathy. Does not bruise/bleed easily. Psychiatric/Behavioral: The patient is nervous/anxious. ? ? ? PAST?MEDICAL?HISTORY ? Abdominal pain 03/13/2014 ? CAD (coronary artery disease) ? ? 2008 ? Compartment syndrome (HCC) ? ? thinks was [id number] ? COPD (chronic obstructive pulmonary disease) (HCC) ? ? Dysthymic disorder ? ? Essential hypertension, benign ? ? GERD (gastroesophageal reflux disease) ? ? Insomnia ? ? Non-compliance with treatment 01/10/2014 ? Other anxiety states ? ? SOB (shortness of breath) 03/13/2014 ?? PAST?SURGICAL?HISTORY ? 2D ECHO (EXEP) ? 3/29/15 ? EF=75%, 1+ TI ? APPENDECTOMY ? ? ? PAST SURGICAL HISTORY OF ? ? ? lung resection and decortication, secondary to pneumothorax ? PAST SURGICAL HISTORY OF ? ? ? left leg comparment syndrome. ? STRESS TEST ? 01/13/15 ?? FAMILY?HISTORY ? Cancer Mother ? ? leukemia, mother is white. ? other (Unknown) Father ? ? notes that her father is black. ? ? CURRENT?MEDICATIONS ? gabapentin (NEURONTIN) 100 mg capsule Take 2 capsules by mouth three times daily for 30 days. 90 capsule 0 ? busPIRone (BUSPAR) 10 mg tablet Take 1 tablet by mouth three times daily. 60 tablet 3 ? traMADol (ULTRAM) 50 mg tablet Take 1 tablet by mouth twice daily as needed for Pain. ? ? ? traZODone (DESYREL) 50 mg tablet Take 1 tablet by mouth daily at bedtime. 30 tablet 2 ? hydrOXYzine HCl (ATARAX) 50 mg tablet Take 1 tablet by mouth every 6 hours as needed. 45 tablet 1 ? pantoprazole DR (PROTONIX) 20 mg tablet Take 1 tablet by mouth once daily. 30 tablet 3 ? amLODIPine (NORVASC) 10 mg tablet Take 10 mg by mouth once daily. ? ? ? hydroCHLOROthiazide (HYDRODIURIL, ESIDRIX) 25 mg tablet Take 25 mg by mouth once daily. ? ? ? diclofenac sodium (VOLTAREN) 1 % topical gel Apply to affected area four times daily. ? ? ? Melatonin 5 mg cap Take by mouth. ? ? ? nitroglycerin (NITRO-DUR TRANSDERM.) Apply as directed. ? ? ? albuterol HFA (VENTOLIN HFA) 90 mcg/actuation inhaler Inhale 2 Puffs as instructed every 4 hours as needed for Wheezing/ ? ibuprofen (ADVIL) 200 mg tablet Take 200 mg by mouth every 6 hours as needed. ? ? ? acetaminophen (TYLENOL) 500 mg tablet Take 500 mg by mouth every 8 hours as needed. ? ? ? calcium carbonate 600 mg-cholecalciferol 200 units (CALCIUM 600 + D,3,) 600 mg(1,500mg) -200 unit tab Take 1 tablet by mouth twice daily. (Patient not taking: Reported on 01/16/2019 ? SOCIAL HISTORY: Patient is . She quit smoking 5 months ago. Judith reports her alcohol or cannabis use as never. ?? Blood pressure 140/73, pulse 79, height 172.7 cm (5' 8), weight 81.6 kg (180 lb). ? Physical Exam Constitutional: She is oriented to person, place, and time. She appears well-developed and well-nourished. No distress. HENT: Head: Normocephalic and atraumatic. not wearing lower dentures today. Eyes: Conjunctivae are normal. No scleral icterus. Neck: No tracheal deviation present. No thyromegaly present. Cardiovascular: Normal rate, regular rhythm and normal heart sounds. Pulmonary/Chest: Effort normal and breath sounds normal. Abdominal: Soft. Bowel sounds are normal. There is no tenderness. Musculoskeletal: She exhibits no edema. Lymphadenopathy: She has no cervical adenopathy. Neurological: She is alert and oriented to person, place, and time. Skin: Skin is warm and dry. She is not diaphoretic. Psychiatric: She has a normal mood and affect. Her behavior is normal. Judgment and thought content normal. ? ? Assessment and Plan GERD 2)non cardiac chest pain 3)history of gastric ulcer ? Continue pantoprazole. The patient is scheduled for upper endoscopy, with MAC, at [facility].. Preparation for the procedure and the procedure itself have been explained in detail. The risks, benefits, anticipated outcomes and possible complications were mentioned. I also explained the procedure in understandable terms and the patient was given printed material concerning the planned procedure. The patient had the opportunity to ask questions concerning the planned procedure. The patient freely consents to the planned procedure. ? The patient is asked to call with any questions or concerns, or if there is a change in health status between now and the scheduled procedure. ? I have personally interviewed and examined this patient. I have read the information that the MA documented in this encounter. I spent 30 minutes in the visit, with more than 50% of the total [id number] time of the visit in counseling / coordination of care. ? Jazmín Salazar RN PLANT TECH.EVENTS MANAGER
[2019-04-16 11:13] VITALS: BP 131/76; PULSE 87; RESP 16; TEMP 37.2; O2SAT 99; BMI 26.4
[2019-04-16 12:40] VITALS: BP 129/74; BP 131/76; PULSE 84; RESP 16; TEMP 37.1; O2SAT 95
--- NOTE | 2019-04-16 12:40 | EGD_PTH ---
PATIENT: JEREMÍAS TAO LOC: EN U#:[id number] AGE/SX: 68/F ROOM: RE04/16/[address]: Dr. Shikha Connolly MD : 1950 BED: DIS: 04/16/2019 SPEC #: [id number] RECD: 04/16/19 15:24 STATUS: BETTY ABDIEL #: [id number] LINCOLN: 04/16/19 12:[address]: Shikha Connolly DEPT: SURGICAL PATHOLOGY RECD BY: Garth Conn ENTERED: 04/17/19 09:46 SP TYPE: EGD BIOPSY OT DR: Dr. Leila Gardner MD Tissues: A - Duodenum, NOS B - Gastric mucous membrane Procedures: Surgery Specimen Level IV HEADER OPERATION: EGD ([facility] [place]) PRE-OP DIAGNOSIS: GERD TISSUE SUBMITTED: A - Duodenal bulb biopsy, B - Antrum biopsy for H. pylori and path MICROSCOPIC DIAGNOSIS A. Duodenal bulb, biopsy: Focal gastric metaplasia. Mild nonspecific chronic inflammation. B. Gastric antrum, biopsy: Minimal chronic inflammation. See comment. AM:wayne 04/18/19 COMMENT B. The results of immunohistochemistry for Helicobacter pylori will be reported separately ([id number]). MICROSCOPIC DESCRIPTION Slides are reviewed. GROSS DESCRIPTION A - Received in fixative is one container labeled with the patient's name and designated duodenal bulb biopsy. The specimen consists of multiple irregular fragments of light murray soft tissue that in aggregate measure 0.4 x 0.2 x 0.1 cm. The specimen is totally submitted in one cassette. B - Received in fixative is one container labeled with the patient's name and designated antrum biopsy for H. pylori and path. The specimen consists of multiple irregular fragments of light murray soft tissue that in aggregate measure 0.3 x 0.3 x 0.1 cm. The specimen is totally submitted in one cassette. / SJ:wayne 04/17/19 TC:3 CPT: 45911 x2
--- NOTE | 2019-04-16 12:40 | IMM_PTH ---
PATIENT: JEREMÍAS TAO LOC: SHRUTI U#:[id number] AGE/SX: 68/F ROOM: RE04/16/[address]: Dr. Shikha Connolly MD : 1950 BED: DIS: 04/16/2019 SPEC #: [id number] RECD: 04/17/19 15:16 STATUS: BETTY REQ #: [id number] LINCOLN: 04/16/19 12:[address]: Shikha Connolly DEPT: IMMUNOHISTOCHEMISTRY RECD BY: Donya Rizo ENTERED: 04/17/19 15:16 SP TYPE: IMMUNO OTHR DR: Dr. Leila Gardner MD Tissues: B - Stomach, NOS Procedures: H Pylori (initial) PHYSICIAN & INSTITUTION [place] [address] SPECIMEN INFORMATION: Tissue Source: B - Antrum biopsy Clinical Info: GERD Specimen Number: [id number] CPT code: 82159 METHODOLOGY: Deparaffinized sections of prefer/formalin-fixed tissue or PAP/DQ stained slides are incubated with monoclonal/polyclonal antibodies/oligonucleotide probes. Localization is made via biotin free immunoperoxidase method. Appropriate controls are performed and reacted as expected. Results on target cell population are indicated in the following table: RESULTS: ANTIBODY / CLONE RESULT Block B H Pylori (polyclonal) negative These tests were developed and their performance characteristics determined by [facility]. They may not have been cleared or approved by the U.S. Food and Drug Administration. The FDA has determined that such clearance or approval is not necessary. INTERPRETATION: B. Antrum biopsy: Negative for Helicobacter pylori organisms. AM:wayne 04/20/19
[2019-04-16 12:45] VITALS: BP 131/76; BP 134/75; PULSE 77; RESP 16; O2SAT 99
[2019-04-16 12:50] VITALS: BP 131/76; BP 135/72; PULSE 80; RESP 16; O2SAT 95
[2019-04-16 12:55] VITALS: BP 131/76; BP 140/80; PULSE 69; RESP 16; TEMP 36.2; O2SAT 97
[2019-04-16 13:27] VITALS: BP 131/76
--- NOTE | 2019-04-18 10:45 | OP.ENDO_ITS ---
04/18/2019 Leila Gardner [address] [id number] Re : Upper GI endoscopy procedure for Judith Martinez Dear Dr. Gardner This procedure was performed on Tuesday, April 16, 2019. My impressions and recommendations are as follows: Impressions : - 3 cm hiatal hernia. - Erythematous mucosa in the antrum. Biopsied. - Erythematous duodenopathy. Biopsied. Recommendations : - Discharge patient to home (ambulatory). - Resume previous diet. - Continue present medications. - Await pathology results. - My office will telephone with pathology results in 1-2 weeks My findings are described in the full procedure note, which is enclosed. If I can be of further assistance, please feel free to contact me at Doctor phone number(s): , Work: . Sincerely, MD Shikha Peters MD 04/16/2019 12:41:29 PM This report has been signed electronically.
== END 2019-04-16 13:53 | disposition home or self-care (01) ==
LOC: EN 10:57 → AC 10:57
PROVIDERS: Family Provider Internal Medicine; PCP Internal Medicine; Referring Provider Surgery; Visit Provider Surgery
PROC: 0DJ08ZZ Inspection of Upper Intestinal Tract, Via Natural or Artificial Opening Endoscopic (ICD-10-PCS; CPT 43235; principal; 2019-04-16 12:35)
DX: K29.50 Unspecified chronic gastritis without bleeding (principal); K29.80 Duodenitis without bleeding; K44.9 Diaphragmatic hernia without obstruction or gangrene; K21.9 Gastro-esophageal reflux disease without esophagitis; I25.10 Atherosclerotic heart disease of native coronary artery without angina pectoris; J44.9 Chronic obstructive pulmonary disease, unspecified; I10 Essential (primary) hypertension; F41.9 Anxiety disorder, unspecified; I25.2 Old myocardial infarction; Z87.891 Personal history of nicotine dependence; Z79.51 Long term (current) use of inhaled steroids; Z79.891 Long term (current) use of opiate analgesic; Z79.899 Other long term (current) drug therapy
CPT/HCPCS: 43239; 88305; 88342; J7120; J2405

== ENCOUNTER → 2019-04-25 | Outpatient (CLI) | payer MEDICARE, MEDICAID, SELFPAY ==
[2019-04-16 11:13] VITALS: BMI 26.4
[2019-04-25 13:49] LABS: Amphetamine Urine VISTA NEGATIVE (<1000 ng/mL); Barbiturate Urine VISTA NEGATIVE (< 200 ng/mL); Benzodiazepine Urine VISTA NEGATIVE (< 200 ng/mL); Cocaine Urine VISTA NEGATIVE (< 300 ng/mL); Ecstacy Urine VISTA NEGATIVE (< 500 ng/mL); Methadone Urine VISTA NEGATIVE (< 300 ng/mL); PCP Urine VISTA NEGATIVE (< 25 ng/mL); THC Urine VISTA NEGATIVE (< 50 ng/mL); Vista UDS pH Range 6
[2019-04-25 13:55] LABS: Anion Gap 6 (5-15); BUN 14 mg/dL (7-18); BUN/Creat Ratio 15.5 RATIO (10-20); Calcium,Total 9.4 mg/dL (8.5-10.1); Chloride 102 mmol/L (98-107); Creatinine, Serum 0.91 mg/dL (0.55-1.02); EST Glomerular Filtration Rate 66 mL/min (>60); Est Glom Filt Rate - Afr Amer 80 mL/min (>60); Glucose 88 mg/dL (74-106); Sodium Level 138 mmol/L (136-145)
== END | disposition home or self-care (01) ==
PROVIDERS: Family Provider Internal Medicine; PCP Internal Medicine; Referring Provider Anesthesiology Pain Medicine; Visit Provider Anesthesiology Pain Medicine
DX: E87.6 Hypokalemia (principal); F11.20 Opioid dependence, uncomplicated
CPT/HCPCS: 36415; 80048; 80307

== ENCOUNTER → 2019-05-15 | Outpatient (CLI) | payer MEDICARE, MEDICAID, SELFPAY ==
[2019-05-15 10:12] VITALS: BMI 26.4
[2019-05-15 12:24] LABS: Anion Gap 10 (5-15); BUN 14 mg/dL (7-18); BUN/Creat Ratio 14.7 RATIO (10-20); Calcium,Total 9.1 mg/dL (8.5-10.1); Chloride 104 mmol/L (98-107); Creatinine, Serum 0.95 mg/dL (0.55-1.02); EST Glomerular Filtration Rate 62 mL/min (>60); Est Glom Filt Rate - Afr Amer 75 mL/min (>60); Glucose 102 mg/dL (74-106); Magnesium 2.1 mg/dL (1.6-2.6); Potassium 2.8 mmol/L (3.5-5.1); Sodium Level 140 mmol/L (136-145)
== END | disposition home or self-care (01) ==
PROVIDERS: Family Provider Internal Medicine; PCP Internal Medicine; Referring Provider Physician Assistant Medical; Visit Provider Physician Assistant Medical
DX: E87.6 Hypokalemia (principal); I48.0 Paroxysmal atrial fibrillation; R07.89 Other chest pain
CPT/HCPCS: 36415; 80048; 83735

== ENCOUNTER → 2019-05-22 | Outpatient (CLI) | payer MEDICARE, MEDICAID, SELFPAY ==
[2019-05-15 10:12] VITALS: BMI 26.4
[2019-05-22 09:30] LABS: Anion Gap 9 (5-15); BUN 11 mg/dL (7-18); BUN/Creat Ratio 11.5 RATIO (10-20); Calcium,Total 9.2 mg/dL (8.5-10.1); Chloride 106 mmol/L (98-107); Creatinine, Serum 0.96 mg/dL (0.55-1.02); EST Glomerular Filtration Rate 62 mL/min (>60); Est Glom Filt Rate - Afr Amer 74 mL/min (>60); Glucose 92 mg/dL (74-106); Potassium 3.6 mmol/L (3.5-5.1); Sodium Level 140 mmol/L (136-145)
== END | disposition home or self-care (01) ==
LOC: LAB 08:26
PROVIDERS: Family Provider Internal Medicine; PCP Internal Medicine; Referring Provider Physician Assistant Medical; Visit Provider Physician Assistant Medical
DX: E87.6 Hypokalemia (principal)
CPT/HCPCS: 36415; 80048

== ENCOUNTER 2019-07-16 10:00 | Outpatient (RCR) | payer MEDICARE, MEDICAID, SELFPAY ==
[2019-05-15 10:12] VITALS: BMI 26.4
--- NOTE | 2019-06-20 11:01 | HP.PTEVAL_ITS ---
Patient's Visit Information JEREMÍAS TAO is a 68 year old F referred to Physical Therapy by Garima Jaqcues MD with a diagnosis of BACK PAIN AND LEG PAIN. Date of Evaluation: 06/20/19 Physical Therapist: Jaswinder Hartmann, PT, Cert MDT, OCS - Visit Plan Frequency: 2x /Week Duration: 4 Weeks Plan: PT INTERVENTIONS DLS,POSTURAL EX'S,STRENGTHENING HIP/KNEE,MODALTIES PRN - Subjective Findings: This 68 y/o female presents to physical therapy with lumbar and right back pain . Patient has had lumbar pain along with leg symptoms for [address] Fields had epidural injections lumbar and cervical. Next injection well Jul 03. Agravating factors walking,bending,lifting. Alleviating sitting,resting. Standing is okay. Patient pain sleeping. Coughing/sneezing-. Bowel/bladder -.Patient pain affects ADLS' and housework tasks. Pateint symtomptoms affects QOL. Pateint had x-rays hip back. Pateint did have prior PT 2 years ago. SOCIAL: single. VOCATION: retired - Pain Right Back Pain Intensity (Out of 10): 4 Pain Intensity Range: 10 Right Lower Extremity Pain Intensity (Out of 10): 4 - Objective POSTURE: mild foward posture. GAIT: reciprocal ruby with ruby with cane mild foward posture. SYMMRICAL: align'. PALAPTION: unremarkable. AROM: hip flexion 90 degrees,IR 20 degrees,ER 30 DEGREES PAIN. MMT: quads/hams 4/5 ,hip flexion 4-/5 , hip abd 3+/5 ,ankle 4/5. FLEXABLITY: hams min tight ,pirifirmis mod tight. LUMBAR ROM:flexion min loss,,extension mod loss,side glides min lolss - Special Tests L/S Slump test left side: Negative L/S Slump test right side: Negative L/S Left Straight Leg Raise: Negative L/S Right Straight Leg Raise: Negative Lumbar Standing: Flexion - Mechanical Response: No effect Lumbar Standing: Flexion - Symptoms During Testing: No effect Lumbar Standing: Flexion - Symptoms After Testing: No effect Lumbar Standing: Extension - Mechanical Response: No effect Lumbar Standing: Extension - Symptoms During Testing: Increases Lumbar Standing: Extension - Symptoms After Testing: No worse - Goals Goal 1:: Independant with HEP Goal Time Frame: 4-6 Weeks Goal 2:: Independant with posture for ADL'S Goal Time Frame: 4-6 Weeks Goal 3:: Patient to decrease lumbar pain and radicular symptoms by 50% to improve function. Goal Time Frame: 4-6 Weeks Goal 4:: Patient to improve lumbar ROM for function of recovery Goal Time Frame: 4-6 Weeks Goal 5:: Patient to increase back owestry score by 5 points > to improve function and QOL Goal Time Frame: 4-6 Weeks - Rehabilitation Potential Physical Therapy Diagnosis: Patient PT impreession with lumbar pain with radicular symptoms with possible stenosis with weakness,decrease lumbar ROM,decreas gait with cane and decrease ROM and strength right hip with possible DJD and function thus benifit from skilled PT Rehabilitation Potential: Good - Anticipated Interventions Patient/Client Instruction: Educate patient on: Condition, Plan of Care For the Purpose of:: To decrease pain, To increase ROM, To improve muscle performance and motor function, To improve ability to perform ADL's, To increase tolerance to activity/condition/position, To improve performance and independence with ADL's, To improve ability of physical actions for h ome/community/work/leisure, To improve health of tissue, To decrease soft tissue restriction, To increase flexibility/ROM, To improve ability to perform tasks related to life management Therapeutic Exercise to Include: Strength training, Postural training, Flexibilty training, Active ROM, Dynamic Lumbar Stabilization, Bailey Exercises For the Purpose of:: To decrease pain, To increase ROM, To improve ability to perform ADL's, To increase tolerance to activity/condition/position, To improve performance and independence with ADL's, To improve ability of physical actions for home/community/work/leisure, To improve health of tissue, To decrease soft tissue restriction, To improve ability to perform tasks related to life management TENS: Yes IF ES: Yes Cryotherapy (ice pack, ice massage): Yes Thermo therapy (hot pack): Yes Ultrasound (thermal/non thermal): Yes For the Purpose of:: To decrease pain, To increase ROM, To improve nutrient delivery to tissue, To increase oxygenation perfusion, To improve health of tissue, To decrease soft tissue restriction Thank you for the opportunity to evaluate your patient. For Medicare and Medicare HMO plans, please review the plan of care and approve it. It will need to be FAXED BACK to us at [phone] for Medicare purposes. For Medicare only, by signing this I certify the plan of care. Please let me know if there are questions or concerns regarding this plan of care. Physician Signature: Date:
--- NOTE | 2019-07-09 15:22 | HP.PTEVAL_ITS ---
Patient's Visit Information JEREMÍAS TAO is a 68 year old F referred to Physical Therapy by Garima Jacques MD with a diagnosis of BACK PAIN AND LEG PAIN. Date of Evaluation: 06/20/19 Physical Therapist: Antonio Doss DPT, OCS, CSCS - Visit Plan Frequency: 2x /Week Duration: 4 Weeks Plan: PT INTERVENTIONS DLS,POSTURAL EX'S,STRENGTHENING HIP/KNEE,MODALTIES PRN - Subjective Findings: This 68 y/o female presents to physical therapy with lumbar and right back pain . Patient has had lumbar pain along with leg symptoms for [address] Fields had epidural injections lumbar and cervical. Next injection well Jul 03. Agravating factors walking,bending,lifting. Alleviating sitting,resting. Standing is okay. Patient pain sleeping. Coughing/sneezing-. Bowel/bladder -.Patient pain affects ADLS' and housework tasks. Pateint symtomptoms affects QOL. Pateint had x-rays hip back. Pateint did have prior PT 2 years ago. SOCIAL: single. VOCATION: retired - Pain Right Back Pain Intensity (Out of 10): 4 Pain Intensity Range: 10 Right Lower Extremity Pain Intensity (Out of 10): 4 - Objective POSTURE: mild foward posture. GAIT: reciprocal ruby with ruby with cane mild foward posture. SYMMRICAL: align'. PALAPTION: unremarkable. AROM: hip flexion 90 degrees,IR 20 degrees,ER 30 DEGREES PAIN. MMT: quads/hams 4/5 ,hip flexion 4-/5 , hip abd 3+/5 ,ankle 4/5. FLEXABLITY: hams min tight ,pirifirmis mod tight. LUMBAR ROM:flexion min loss,,extension mod loss,side glides min lolss - Special Tests L/S Slump test left side: Negative L/S Slump test right side: Negative L/S Left Straight Leg Raise: Negative L/S Right Straight Leg Raise: Negative Lumbar Standing: Flexion - Mechanical Response: No effect Lumbar Standing: Flexion - Symptoms During Testing: No effect Lumbar Standing: Flexion - Symptoms After Testing: No effect Lumbar Standing: Extension - Mechanical Response: No effect Lumbar Standing: Extension - Symptoms During Testing: Increases Lumbar Standing: Extension - Symptoms After Testing: No worse - Goals Goal 1:: Independant with HEP Goal Time Frame: 4-6 Weeks Goal 2:: Independant with posture for ADL'S Goal Time Frame: 4-6 Weeks Goal 3:: Patient to decrease lumbar pain and radicular symptoms by 50% to improve function. Goal Time Frame: 4-6 Weeks Goal 4:: Patient to improve lumbar ROM for function of recovery Goal Time Frame: 4-6 Weeks Goal 5:: Patient to increase back owestry score by 5 points > to improve function and QOL Goal Time Frame: 4-6 Weeks - Rehabilitation Potential Physical Therapy Diagnosis: Patient PT impreession with lumbar pain with radicular symptoms with possible stenosis with weakness,decrease lumbar ROM,decreas gait with cane and decrease ROM and strength right hip with possible DJD and function thus benifit from skilled PT Rehabilitation Potential: Good - Anticipated Interventions Patient/Client Instruction: Educate patient on: Condition, Plan of Care For the Purpose of:: To decrease pain, To increase ROM, To improve muscle performance and motor function, To improve ability to perform ADL's, To increase tolerance to activity/condition/position, To improve performance and independence with ADL's, To improve ability of physical actions for home/co mmunity/work/leisure, To improve health of tissue, To decrease soft tissue restriction, To increase flexibility/ROM, To improve ability to perform tasks related to life management Therapeutic Exercise to Include: Strength training, Postural training, Flexibilty training, Active ROM, Dynamic Lumbar Stabilization, Bailey Exercises For the Purpose of:: To decrease pain, To increase ROM, To improve ability to perform ADL's, To increase tolerance to activity/condition/position, To improve performance and independence with ADL's, To improve ability of physical actions for home/community/work/leisure, To improve health of tissue, To decrease soft tissue restriction, To improve ability to perform tasks related to life management TENS: Yes IF ES: Yes Cryotherapy (ice pack, ice massage): Yes Thermo therapy (hot pack): Yes Ultrasound (thermal/non thermal): Yes For the Purpose of:: To decrease pain, To increase ROM, To improve nutrient delivery to tissue, To increase oxygenation perfusion, To improve health of tissue, To decrease soft tissue restriction Thank you for the opportunity to evaluate your patient. For Medicare and Medicare HMO plans, please review the plan of care and approve it. It will need to be FAXED BACK to us at [phone] for Medicare purposes. For Medicare only, by signing this I certify the plan of care. Please let me know if there are questions or concerns regarding this plan of care. Physician Signature: Date:
--- NOTE | 2019-07-10 10:02 | HP.PTEVAL2_ITS ---
Patient's Visit Information JEREMÍAS TAO is a 68 year old F referred to Physical Therapy by Garima Jacques MD with a diagnosis of BPPV. Date of Evaluation: 07/09/19 Physical Therapist: Antonio Doss, EMANUELT, OCS, CSCS - Visit Plan Frequency: 1-2x /Week Duration: 2-4 Weeks Plan: 1-2x/week for 2-4 weeks as needed for : positional treatments adn exercises as needed. Moniot r need for balance intervention once dizzyness taken care of. - Subjective Findings: I have vertigo. If she turns her head she gets extremely dizzy for a few seconds. Lying down can do it. This has been happening 2 months. Started insidiously in the shower. Happening frequently throughout the day 5x. Feels normal when not dizzy. Balance only a problem when dizzy. Gets no exercise. Uses cane now and has for 2 months, didn't need it prior. Sleep is not great but not abnormaly. Work:retired. Spends day watching TV adn visiting friends. 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 Basic ADLs are I herself. - Objective Objective: - R HD, + L hallpike wayne. up torsional 5 sec nystagmus. Treated with L Ruby and instruct. Walks with cane mod I with some L antalgia. Transfers I. c/s AROM WFL adn without c/o pain today - Balance Scores Functional Gait Assessment Score: 22 % Disability: 26.6700 CATSIB Score (Max score 120 seconds): 85 - Goals Goal 1:: abolish vertigo with position change. Goal Time Frame: 2-4 Weeks Goal 2:: 25/30 FGA to diminish fall risk Goal Time Frame: 4-6 Weeks Goal 3:: Pt feel 95% better with dizzyness - Rehabilitation Potential Physical Therapy Diagnosis: BPPV L post canal. Rehabilitation Potential: Good - Anticipated Interventions Patient/Client Instruction: Educate patient on: Condition, Plan of Care For the Purpose of:: To increase tolerance to activity/condition/position, To improve safety with gait Therapeutic Exercise to Include: Balance training For the Purpose of:: To increase tolerance to activity/condition/position, To improve safety Thank you for the opportunity to evaluate your patient. For Medicare and Medicare HMO plans, please review the plan of care and approve it. It will need to be FAXED BACK to us at [phone] for Medicare purposes. For Medicare only, by signing this I certify the plan of care. Please let me know if there are questions or concerns regarding this plan of care. Physician Signatur e: Date:
--- NOTE | 2019-07-16 10:44 | HP.PTDCSUM ---
HP - PT D/C Summary It has been my pleasure to treat JEREMÍAS TAO under orders from Garima Jacques MD, for the diagnosis of BACK PAIN AND LEG PAIN for a total of 5 visit(s). Discharge Date: 07/16/19 Please see the following information for a summary of their discharge status. - Subjective Subjective: Doing better with feeling stronger.Plan to see orthopedic DR for hip pain - Pain Right Back Pain Intensity (Out of 10): 3 Right Lower Extremity Pain Intensity (Out of 10): 3 - Objective Objective/Function: POSTURE: mild foward posture. GAIT: antalgic gait right side mild foward posture. LUMBAR ROM: flexion mid loss,extesnion mod loss,side glide min loss. PROM: hip flexion 90 degrees ,IR 5 degrees pain. MMT: quads/hams 4/5,hip flexion 4-/5 ,ad 3+/5 ,ankle4/5 - Goals Goal 1:: Independant with HEP Goal Progress: Goal Met Goal 2:: Independant with posture for ADL'S Goal Progress: Goal Met Goal 3:: Patient to decrease lumbar pain and radicular symptoms by 50% to improve function. Goal Progress: Progressing Goal 4:: Patient to improve lumbar ROM for function of recovery Goal 5:: Patient to increase back owestry score by 5 points > to improve function and QOL Goal Progress: Goal Met - Plan Plan: d/c see ortho DR for Right hip - D/C Information Discharge Comments: PLAN TO SEE ortho for Right HIP If there are questions or concerns regarding this patient's physical therapy, please feel free to call me at [phone]. Thank you for the referral of this patient. Sincerely, Jaswinder Hartmann, PT, Cert MDT, OCS
== END 2019-07-16 19:00 | disposition home or self-care (01) ==
LOC: PT 10:00
PROVIDERS: Family Provider Internal Medicine; PCP Internal Medicine; Referring Provider Anesthesiology Pain Medicine; Visit Provider Anesthesiology Pain Medicine
DX: M54.9 Dorsalgia, unspecified (principal); M79.606 Pain in leg, unspecified
CPT/HCPCS: 97110; 97162; 97530

== ENCOUNTER 2019-12-14 09:59 | Outpatient (RCR) | payer MEDICARE, MEDICAID, SELFPAY ==
[2019-06-21 12:57] VITALS: BMI 26.9
--- NOTE | 2019-12-14 13:15 | HP.PTEVAL ---
Patient's Visit Information JEREMÍAS TAO is a 69 year old F referred to Physical Therapy by Leila Gardner MD with a diagnosis of Cervicalgia. Date of Evaluation: 12/14/19 Physical Therapist: Dewey Schafer DPT - Visit Plan Frequency: 2x /Week Duration: 4 Weeks Plan: Start with mild manual distraction, R UT/R levator scap stretching. Supine cervical retraction, seated scap retraction, pec stretching. Work on postural education/stretching/strengthening. - Subjective Findings: Pt. is here today for her initial evaluation with diagnosis of cervicalgia. Pt. reports having pain in her neck for years. 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 Pt. reprots increased pain in her neck and R arm as well. No mechanism of injury. Pt. denies weakness. Patient is taking medication (tramadol). Pt. reports pain at R shoulder and underneath her shoulder blade. Pt. has had an xray- showing degenerative changes. Worse: sleeping, reading, chores around the house. Better: nothing known. - Pain Cerivcal spine Pain Intensity (Out of 10): 4 Pain Intensity Range: 0, 7 R shoulder Pain Intensity (Out of 10): 5 Pain Intensity Range: 0, 5 - Objective POSTURE: Pt. has FH posture, with rounded shoulders. PALPATION: Pt. has increased tenderness at R levator scap, R UT, R cervical erector spinea (worst at C3-C7). NEURO: normal throughout B UEs. Normal sensation. ROM: BUEs: shoulders- patient has full ROM, but does have incerased in R shoulder pain with flexion, abd and functional ER at end ranges. CERVICAL SPINE: flexion- nill loss NE, extension- min/mod loss increase NW, rotation R- min loss increase NW, roation L min loss increase NW, SB mod/max loss increase NW bilat. MMT: Pt. has general 5-/5 strength throughout her UEs. 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 No signs of myotomal weakness. - Special Tests C/S Radiculapathy - Right Spurlings: Positive C/S Radiculapathy - Right Relief test: Positive Cervical Sitting: Protrusion - Mechanical Response: No effect Cervical Sitting: Protrusion - Symptoms During Testing: No effect Cervical Sitting: Protrusion - Symptoms After Testing: No effect Cervical Sitting: Retraction - Mechanical Response: No effect Cervical Sitting: Retraction - Symptoms During Testing: Decreases Cervical Sitting: Retraction - Symptoms After Testing: No better Cervical Sitting: Retraction-Extension - Mechanical Response: No effect Cerv Sitting: Retraction-Extension - Symptoms During Testing: Decreases Cerv Sitting: Retraction-Extension - Symptoms After Testing: No better - Goals Goal 1:: LTG: Pt. to be I with HEP. Goal Time Frame: 4-6 Weeks Goal 2:: STG: Pt. to sleep throughout the night withotu increase in symptoms. Goal Time Frame: 2-4 Weeks Goal 3:: LTG: Pt. to have increased ROM to full of cervical spine without increase in symptoms. Goal Time Frame: 4-6 Weeks Goal 4:: LTG: Pt. to demostrate improved posture throughout therapy session. Goal Time Frame: 4-6 Weeks Goal 5:: LTG: pt. to complete all ADLs with 0-2/10 pain in R shoulder and cervical spine. Goal Time Frame: 4-6 Weeks - Rehabilitation Potential Physical Therapy Diagnosis: Pt. has signs and symptoms consistent with cervicalgia. From her xrays she has DDD, some mild migration of her lower cervical segments and possible encrochment on her nerve at C5-C6 on R side. Pt. has R sided pain with dcreased mobility and muscle tightness. I would recommend that she work on this ROM and msucle tension to overall reduce the forces applied to her cervical spine. Rehabilitation Potential: Good - Anticipated Interventions Patient/Client Instruction: Educate patient on: Condition, Plan of Care, Risk Factors For the Purpose of:: To improve decision making, To facilitate caregiver knowledge, To improve self management, To prevent re-injury, To improve ability to perform tasks related to life management, To improve tolerance to ADL's Therapeutic Exercise to Include: Strength training, Power training, Endurance training, Postural training, Flexibilty training, Gait and locomotor training, Passive ROM, Active ROM, Bailey Exercises, Scapular Strength/Stabilization For the Purpose of:: To decrease pain, To increase ROM, To improve nutrient delivery to tissue, To increase oxygenation perfusion, To improve muscle performance and motor function, To improve ability to perform ADL's, To improve health of tissue, To decrease soft tissue restriction, To increase flexibility/ROM Manual Therapy Techniques to Include: Mobilization, Passive ROM, Functional dry needling, Soft tissue mobilization For the Purpose of:: To decrease pain, To decrease swelling/inflammation, To increase ROM, To improve nutrient delivery to tissue, To increase oxygenation perfusion, To improve muscle performance and motor function Cryotherapy (ice pack, ice massage): Yes Thermo therapy (hot pack): Yes Ultrasound (thermal/non thermal): Yes For the Purpose of:: To decrease pain, To decrease swelling/inflammation, To increase ROM, To improve nutrient delivery to tissue Thank you for the opportunity to evaluate your patient. For Medicare and Medicare HMO plans, please review the plan of care and approve it. It will need to be FAXED BACK to us at [phone] for Medicare purposes. For Medicare only, by signing this I certify the plan of care. Please let me know if there are questions or concerns regarding this plan of care. Physician Signature: Date:
--- NOTE | 2020-05-22 10:13 | HP.PT.NRP ---
JEREMÍAS TAO was seen in my office for initial evaluation on 12/14/19. The following Plan of Care was established for this patient: Initial Frequency: 2x /Week Initial Duration: 4 Weeks Patient/Client Instruction: Educate patient on: Condition, Plan of Care, Risk Factors For the Purpose of:: To improve decision making, To facilitate caregiver knowledge, To improve self management, To prevent re-injury, To improve ability to perform tasks related to life management, To improve tolerance to ADL's Therapeutic Exercise to Include: Strength training, Power training, Endurance training, Postural training, Flexibilty training, Gait and locomotor training, Passive ROM, Active ROM, Bailey Exercises, Scapular Strength/Stabilization For the Purpose of:: To decrease pain, To increase ROM, To improve nutrient delivery to tissue, To increase oxygenation perfusion, To improve muscle performance and motor function, To improve ability to perform ADL's, To improve health of tissue, To decrease soft tissue restriction, To increase flexibility/ROM Manual Therapy Techniques to Include: Mobilization, Passive ROM, Functional dry needling, Soft tissue mobilization For the Purpose of:: To decrease pain, To decrease swelling/inflammation, To increase ROM, To improve nutrient delivery to tissue, To increase oxygenation perfusion, To improve muscle performance and motor function Cryotherapy (ice pack, ice massage): Yes Thermo therapy (hot pack): Yes Ultrasound (thermal/non thermal): Yes For the Purpose of:: To decrease pain, To decrease swelling/inflammation, To increase ROM, To improve nutrient delivery to tissue This patient was last seen in our office 12/14/19. Pertinent comments regarding their Physical therapy will appear below: Pt. was seen for her initial evaluation with cervicalgia. Pt. has not been seen since and will be DC from PT at this point in time. At this point I will be discontinuing this patient from physical therapy. I would be happy to see this patient again in the future if found appropriate by the physician. Thank you! Dewey Schafer, KALIE
== END 2019-12-14 19:00 | disposition home or self-care (01) ==
LOC: PT 09:59
PROVIDERS: PCP Internal Medicine; Referring Provider Internal Medicine; Visit Provider Internal Medicine
DX: M54.2 Cervicalgia (principal)
CPT/HCPCS: 97110; 97161

== ENCOUNTER → 2020-02-27 | Outpatient (CLI) | payer MEDICARE, MEDICAID, SELFPAY ==
[2020-02-27 12:59] VITALS: BMI 27.2
[2020-02-27 16:08] LABS: Absolute Lymphocyte Count 2.39 X10^3/uL (0.83-4.51); Absolute Neutrophil Count 3.9 X10^3/uL (2.0-7.7); Basophil# 0.06 X10^3/uL; Basophil% 0.9 % (0-1); Eosinophil# 0.16 X10^3/uL; Eosinophils% 2.3 % (0-5); Hematocrit 41.3 % (37-47); Hemoglobin 13.5 g/dL (12.0-15.0); Lymphocyte # 2.39 X10^3/ul (4.0); Lymphocyte % 34.3 % (19-41); Mean Corp Hgb Conc 32.7 g/dL (32-36); Mean Corpuscular Hgb 31.3 pg (27.0-32.0); Mean Corpuscular Volume 95.8 fL (81-99); Monocyte# 0.48 X10^3/uL; Monocyte% 6.9 % (0-10); NRBC Flagged by Analyzer 0 % (0-5); Neutrophil # 3.86 X10^3/uL (2.7-7.7); Neutrophil % 55.5 % (47-70); Platelet Count 276 K/mm3 (150-450); RBC Distribution Width CV 12.6 % (11.6-14.6); RBC Distribution Width SD 44.1 fl (35.1-43.9); Red Blood Count 4.31 M/mm3 (4.2-5.4)
[2020-02-27 16:34] LABS: Anion Gap 6 (5-15); BUN 17 mg/dL (7-18); BUN/Creat Ratio 15.7 RATIO (10-20); Calcium,Total 9.3 mg/dL (8.5-10.1); Chloride 109 mmol/L (98-107); Creatinine, Serum 1.08 mg/dL (0.55-1.02); EST Glomerular Filtration Rate 54 mL/min (>60); Est Glom Filt Rate - Afr Amer 65 mL/min (>60); Glucose 90 mg/dL (74-106); Potassium 3.9 mmol/L (3.5-5.1); Sodium Level 141 mmol/L (136-145)
== END | disposition home or self-care (01) ==
LOC: LAB 15:42
PROVIDERS: Referring Provider Internal Medicine Cardiovascular Disease; Visit Provider Internal Medicine Cardiovascular Disease
DX: I10 Essential (primary) hypertension (principal); R07.9 Chest pain, unspecified
CPT/HCPCS: 36415; 80048; 85025

== ENCOUNTER 2020-03-06 06:43 | Day surgery (SDC) | payer MEDICARE, MEDICAID, SELFPAY ==
[2020-02-27 12:59] VITALS: BMI 27.2
[2020-03-05 11:17] VITALS: BMI 27.2
--- NOTE | 2020-03-06 08:24 | CL.D_ITS ---
Patient Name: JEREMÍAS TAO Study Date: 03/06/2020 Performing: Umer Lester MD Ht: 68.11 inches 173 cm : 1950 Wt: 178.57 lbs 81 kg Age: 69 Gender: female BSA: 1.95 PROCEDURE(S) PERFORMED QS40-DDO/COR/LV CLINICAL PROFILE AND INDICATIONS Indications: Suspected CAD Heart Failure: None Stress/Imaging Stress Test w/SPECT MPI: Yes Result: IndeterminantStress Test with SPECT MPI: Inde terminant CAD Presentations: Unstable angina. CONCLUSIONS Non obstructive coronary arteries Normal LV size, wall motion,and systolic function RECOMMENDATIONS Medical therapy DESCRIPTION OF PROCEDURE The patient arrived to the procedure lab. The risks and benefits of the procedure as well as a full d escription of our services here and current unavailability of surgical backup were fully explained to the patient and/or their significant other prior to the catheterization. The Timeout was completed, verifying the correct patient and procedure. The patient's procedural site was prepped and draped in the usual fashion. Local anesthetic was given subcutaneously to right radial region with Lidocaine 2% . Using a modified Seldinger technique, arterial access was obtained via the right radial artery, a 6 Fr sheath was inserted. Right Coronary Artery selective angiography was then performed in multiple v iews using a 5 Fr. 4.0 Old Glory catheter. Left Coronary Artery selective angiography was performed in mu ltiple views using a 5 Fr. 4.0 Old Glory catheter. Left Ventriculography was performed in TUTTLE projection using a 5 Fr. Pigtail catheter. LV to AO pullback pressures were then recorded.The arterial sheath was pulled and a TR Band was applied for hemostasis 11cc air CORONARY ANGIOGRAPHY DOMINANCE: Right Dominant LEFT HEART ASSESSMENT Left Ventricular Ejection Fraction: by LV Gram 65 % Normal LV wall motion Normal Left Ventricular systolic function LEFT MAIN: Angiographically normal LEFT ANTERIOR DESCENDING ARTERY: MID LAD: Mild luminal irregularities less than 30% CIRCUMFLEX ARTERY: No significant disease noted RAMUS: No significant disease noted RIGHT CORONARY ARTERY: No significant disease noted COMPLICATIONS No Complications PROCEDURE MEDICATIONS Versed 1 mg IV Fentanyl 50 mcg IV Versed 1 mg IV Oxygen: 2 L/min via nasal cannula Benadryl 25 mg IV @ 03/06/2020 07:53:51 Heparin diluted in 23cc Heparinized saline. Patient given 10cc IA of this solution. 03/06/2020 08:06: 05 Solu-medrol 125 mg IV 03/06/2020 07:53:51 Verapamil 2.5mg, Ntg 100mcgs, 2000 units of Heparin diluted in 23cc Heparinized saline. Patient give n 10cc IA of this solution. 03/06/2020 08:06:05 SUMMARY OF HEMODYNAMIC DATA Time AIR REST ECG 07:23:21 AO 133/81 (105) SA 08:07:54 LV 150/10, 19 08:13:40 LV 158/11, 22 08:13:46 LV 147/13, 24 08:14:33 LVp 151/16, 26 08:14:39 AOp 152/80 (115) 08:14:44 08:22:21 Signed By Umer Lester MD On 03/06/2020 08:24:03 Umer Lester MD
== END 2020-03-06 10:40 | disposition home or self-care (01) ==
LOC: CLSP 06:44
PROVIDERS: Referring Provider Internal Medicine Cardiovascular Disease; Visit Provider Internal Medicine Cardiovascular Disease
DX: R07.9 Chest pain, unspecified (principal); I48.0 Paroxysmal atrial fibrillation; I10 Essential (primary) hypertension; F41.9 Anxiety disorder, unspecified; F32.9 Major depressive disorder, single episode, unspecified; J44.9 Chronic obstructive pulmonary disease, unspecified; G89.29 Other chronic pain; M81.0 Age-related osteoporosis without current pathological fracture; F20.9 Schizophrenia, unspecified; F10.21 Alcohol dependence, in remission; Z79.899 Other long term (current) drug therapy
CPT/HCPCS: 93005; 93458; 99152; 99153; J7040; C1769; C1894; Q9967